=== PATIENT | male | born 1970 | race Caucasian/White ===

== ENCOUNTER 2017-02-28 11:04 | Inpatient (IN) | payer OTHER ==
[2017-02-28 11:13] VITALS: BMI 39.5
--- NOTE | 2017-02-28 11:32 | PDOC ---
History of Present Illness - General Chief Complaint: Pain Stated Complaint: LEFT SIDE ABDOMINAL PAIN Time Seen by Provider: 02/28/17 11:26 - History of Present Illness Initial Comments: 02/28/17 11:31 46 yo M with h/o HTN, and recent diagnosis of hypertensive cardiomyopathy who presents with L sided abdominal pain. Patient reports acute onset of Left sided migratory abdominal pain beginning this past Thursday (02/25/16). Pain described as intermittent, variable dull and sharp burning pain aggravated with movement and deep inhalation.Pain not aggravated with food. Also asx.with abdominal bloating, decreased appetite, and dark bright yellow/orange colored urination. Denies N/V, fevers/chills, BPR, diarrhea, constipation, flank pain , dysuria, hematuria, lightheadedness, weakness. Denies OTC symptom management. Reports h/ o cyst on spleen. Has h/o hepatosteatosis. Denies PUD, hernias, abdominal surgery. Denies NSAID use. Endorses occasional alcohol use Q 3 months. Denies tobacco use. Denies recent traveling, camping, hiking. Past History - Past Medical History Allergies/Adverse Reactions: Allergies Allergy/AdvReac Type Severity Reaction Status Date / Time No Known Allergies Allergy Verified 02/28/17 11:09 Home Medications: Ambulatory Orders Carvedilol 6.25 mg PO BID 02/28/17 Eplerenone [Inspra] 50 mg PO DAILY 02/28/17 Valsartan/Hydrochlorothiazide [Valsartan-Hctz 160-25 mg Tab] 1 each PO DAILY COPD: No HTN: Yes Hypercholesterolemia: Yes - Suicide/Smoking/Psychosocial Hx Smoking Status: No Smoking History: Never smoked Number of Cigarettes Smoked Daily: 0 Information on smoking cessation initiated: No Hx Alcohol Use: No Drug/Substance Use Hx: No Substance Use Type: None Review of Systems - Review of Systems Comments:: 02/28/17 11:31 GENERAL/CONSTITUTIONAL: No fever or chills. No weakness. HEAD, EYES, EARS, NOSE AND THROAT: No change in vision. No ear pain or discharge. No sore throat.- CARDIOVASCULAR: No chest pain or shortness of breath RESPIRATORY: No cough, wheezing, or hemoptysis. GASTROINTESTINAL:+ abdominal pain. No nausea, vomiting, diarrhea or constipation. GENITOURINARY: No dysuria, frequency, or change in urination. MUSCULOSKELETAL: No joint or muscle swelling or pain. No neck or back pain. SKIN: No rash NEUROLOGIC: No headache, vertigo, loss of consciousness, or change in strength/ sensation. ENDOCRINE: No increased thirst. No abnormal weight change HEMATOLOGIC/LYMPHATIC: No anemia, easy bleeding, or history of blood clots. ALLERGIC/IMMUNOLOGIC: No hives or skin allergy. *Physical Exam - Vital Signs Last Vital Signs Temp Pulse Resp BP Pulse Ox 99.0 F 81 18 145/90 100 02/28/17 11:10 02/28/17 11:10 02/28/17 11:10 02/28/17 11:10 02/28/17 11:10 - Physical Exam Comments: 02/28/17 11:31 GENERAL: Awake, alert, and fully oriented, in no acute distress HEAD: No signs of trauma, normocephalic, atraumatic EYES: PERRLA, EOMI, sclera anicteric, conjunctiva clear ENT: Hearing grossly normal, nares patent, oropharynx clear without exudates. Moist mucosa NECK: Normal ROM, no, JVD, or masses LUNGS: No distress, speaks full sentences, clear to auscultation bilaterally HEART: Regular rate and rhythm, normal S1 and S2, no murmurs, rubs or gallops, peripheral pulses normal and equal bilaterally. ABDOMEN: Soft, Slight left sided abdominal tednerness with palpation of right quadrant. non rigid, absent rebound ttp, normoactive bowel sounds. No guarding. No masses. Absent CVA ttp, or suprpapubic ttp. EXTREMITIES : Normal inspection, Normal range of motion, no edema. No clubbing or cyanosis. SKIN: Warm, Dry, normal turgor, no rashes or lesions noted. \ ED Treatment Course - LABORATORY CBC & Chemistry Diagram: 02/28/17 11:55 02/28/17 12:45 Medical Decision Making - Medical Decision Making 02/28/17 11:58 46 yo M with h/o HTN, and recent diagnosis of hypertensive cardiomyopathy who presents with onset of Left sided migratory abdominal pain beginning this past Thursday (02/25/16). Pain is intermittent, variable dull and sharp burning pain aggravated with movement and deep inhalation.Asx. w/ abdominal bloating, decreased appetite, and dark bright yellow/orange colored urination. Denies N/V , fevers/chills, BPR, diarrhea, constipation, flank pain , dysuria, hematuria, lightheadedness, weakness. Reports h/o splenic cyst and hepatosteatosis. Endorses occasional alcohol use Q 3 months. Physical exam notable for L sided abdominal tenderness when palpating right quadrant. Hemodynamically stable. Low suspicion for infectious etiology, diverticulitis, colitis, gastroenteritis, in absence of systemic complaints, or bowel changes. Will consider urinary pathology in setting of dark color urine. Potential neprholithiasis vs less likely cystitis/pyelonephritis. Also consider splenic infarction/cyst rupture. ED Course: CBC, CMP, Lipase UA 02/28/17 13:[address] AP W/CON 02/28/17 14:38 CMP, CBC: unremarkable UA: 2 + blood, negative leuk esterase, and nitrite. 02/28/17 16:27 CT AP: Acute splenic infarct. Heparin infusion. 02/28/17 17:52 Spoke to [id number] Bonner.Will admit patient to Med/Surg Obs. *DC/Admit/Observation/Transfer Diagnosis at time of Disposition: Splenic infarction - Discharge Dispostion Admit: Yes - Referrals Referrals: Latanya Gruber MD [Primary Care Provider] - - Patient Instructions - Post Discharge Activity
--- NOTE | 2017-02-28 11:38 | PDOC ---
Attending Attestation - Resident Resident Name: Dillon Crum - HPI HPI: 02/28/17 12:52 Pt presents to the ED complaining of L sided abdominal pain that has been intermittent for one week. Denies fever, nausea and vomiting. Denies cough. Denies bowel complaints. Reports that the bumps in the road on the way to the ED were causing him to have severe pain and sweat. - Physicial Exam PE: 02/28/17 12:54 Agree with resident exam. Abdomen is soft, non tender and non distended on my exam. - Medical Decision Making 02/28/17 12:56 Pt presents to the ED complaining of a one week history of intermittent L sided abdominal pain. Differential includes diverticulitis, less likely splenic lesion or infarct, nephrolithiasis. Will check labs and CT abdomen pelvis, reassess. Will likely discharge home if labs and CT are negative
[2017-02-28 12:46] LABS: BASO % 0.9 % (0-2.0); EOS % 3.3 % (0-4.5); HEMATOCRIT 48.4 % (35.4-49); HEMOGLOBIN 15.7 GM/dL (11.7-16.9); LYMPH % 27.9 % (8-40); MCH 28.9 pg (25.7-33.7); MCHC 32.5 g/dl (32.0-35.9); MEAN CELL VOLUME 88.7 fl (80-96); MEAN PLT VOLUME 9.6 fl (7.5-11.1); MONO % 9.5 % (3.8-10.2); NEUT % 58.4 % (42.8-82.8); PLATELET COUNT 207 K/MM3 (134-434); RBC 5.45 M/mm3 (4.00-5.60); RDW 14.1 % (11.9-15.9); WHITE BLOOD COUNT 10.6 K/mm3 (4.0-10.0)
[2017-02-28 13:11] LABS: URINE APPEARANCE CLEAR; URINE BILIRUBIN NEGATIVE (NEGATIVE); URINE BLOOD 2+ (NEGATIVE); URINE COLOR YELLOW; URINE GLUCOSE (UA) NEGATIVE (NEGATIVE); URINE KETONE NEGATIVE (NEGATIVE); URINE LEUK ESTERASE NEGATIVE (NEGATIVE); URINE NITRITE NEGATIVE (NEGATIVE); URINE UROBILINOGEN NEGATIVE mg/dL (0.2-1.0)
[2017-02-28 13:27] LABS: URINE PROTEIN 1+ (NEGATIVE)
[2017-02-28 13:28] LABS: EPI CELLS RARE /HPF (FEW); URINE HYALINE CAST 1 /lpf; URINE MUCUS RARE
[2017-02-28] MEDS ORDERED: SODIUM CHLORIDE 1,000 ML IV STA (13:28)
[2017-02-28 13:31] LABS: ALBUMIN 3.6 g/dl (3.4-5.0); ALK PHOS 116 U/L (45-117); ANION GAP 6 (8-16); BILIRUBIN,TOTAL 1.1 mg/dL (0.2-1.0); BLOOD UREA NITROGEN 15 mg/dL (7-18); CALCIUM 8.9 mg/dL (8.5-10.1); CHLORIDE 99 mmol/L (98-107); CO2 31 mmol/L (21-32); CREATININE 1.2 mg/dL (0.7-1.3); GLUCOSE,RANDOM 90 mg/dL (74-106); POTASSIUM 4.4 mmol/L (3.5-5.1); SGOT/AST 24 U/L (15-37); SGPT/ALT 49 U/L (12-78); SODIUM 136 mmol/L (136-145); TOT PROT 7.4 g/dl (6.4-8.2)
[2017-02-28] MEDS ORDERED: HEPARIN NA (PORCINE) 5,000 UNITS/ML 1ML VIAL ONE (18:03)
[2017-02-28] MEDS ORDERED: HEPARIN INFUSION - 25,000 UNITS/500 ML INFUS.BAG IVPB ONE (18:03)
[2017-02-28] MEDS: HEPARIN - 25,000 UNIT in SODIUM CHLORIDE 495 ML IV SCH (18:13)
[2017-02-28] MEDS: HEPARIN NA (PORCINE) 5,000 UNITS/ML 1ML VIAL IVPUSH PRN (18:13)
[2017-02-28 18:34] LABS: PROTHROMBIN TIME (PATIENT) 11.3 SEC (9.98-11.88)
[2017-02-28 19:50] LABS: URIC ACID 8.7 mg/dL (2.6-7.2)
--- NOTE | 2017-02-28 21:36 | HP ---
CHIEF COMPLAINT: Left sided abdominal pain PCP: Rock [employer]imb[employer] Instructor: Dr. Stahl ([facility]) HISTORY OF PRESENT ILLNESS: This is a 46 y/o male recently diagnosed Hypertensive Cardiomyopathy. Who presents to the ED sent in from urgent care with L- sided abdominal pain x 4 days. Patient reports having intermittent, dull pain then sharp, burning, increased with deep inspiration. Patient denies fall or trauma. Patient denies fever, chills, cough, SOB, CP, N/V/D, constipation, dysuria. 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[employer]) Family History: Grandfather- DVT Allergies No Known Allergies Allergy (Verified 02/28/17 11:09) HOME MEDICATIONS: Home Medications Medication Instructions Recorded Carvedilol 6.25 mg PO BID 02/28/17 Eplerenone [Inspra] 50 mg PO DAILY 02/28/17 Valsartan/Hydrochlorothiazide 1 each PO DAILY 02/28/17 [Valsartan-Hctz 160-25 mg Tab] REVIEW OF SYSTEMS CONSTITUTIONAL: Absent: fever, chills, diaphoresis, generalized weakness, malaise, loss of appetite, weight change HEENT: Absent: rhinorrhea, nasal congestion, throat pain, throat swelling, difficulty swallowing, mouth swelling, ear pain, eye pain, visual changes CARDIOVASCULAR: Absent: chest pain, syncope, palpitations, irregular heart rate, lightheadedness , peripheral edema RESPIRATORY: pain on inspiration Absent: cough, shortness of breath, dyspnea with exertion, orthopnea, wheezing, stridor, hemoptysis GASTROINTESTINAL: abdominal pain Absent: abdominal distension, nausea, vomiting, diarrhea, constipation, melena, hematochezia GENITOURINARY: Absent: dysuria, frequency, urgency, hesitancy, hematuria, flank pain, genital pain MUSCULOSKELETAL: Absent: myalgia, arthralgia, joint swelling, back pain, neck pain SKIN: Absent: rash, itching, pallor HEMATOLOGIC/IMMUNOLOGIC: Absent: easy bleeding, easy bruising, lymphadenopathy, frequent infections ENDOCRINE: Absent: unexplained weight gain, unexplained weight loss, heat intolerance, cold intolerance NEUROLOGIC: Absent: headache, focal weakness or paresthesias, dizziness, unsteady gait, seizure, mental status changes, bladder or bowel incontinence PSYCHIATRIC: Absent: anxiety, depression, suicidal or homicidal ideation, hallucinations. PHYSICAL EXAMINATION Vital Signs - 24 hr 02/28/17 02/28/17 02/28/17 11:10 16:14 20:20 Temperature 99.0 F 97.8 F Pulse Rate 81 Pulse Rate [ 72 85 Radial] Respiratory 18 20 18 Rate Blood Pressure 145/90 Blood Pressure 133/86 126/75 [Left Arm] O2 Sat by Pulse 100 96 97 Oximetry (%) GENERAL: Awake, alert, and fully oriented, in no acute distress. HEAD: Normal with no signs of trauma. EYES: Pupils equal, round and reactive to light, extraocular movements intact, sclera anicteric, conjunctiva clear. No lid lag. EARS, NOSE, THROAT: Ears normal, nares patent, oropharynx clear without exudates. Moist mucous membranes. NECK: Normal range of motion, supple without lymphadenopathy, JVD, or masses. LUNGS: Breath sounds equal, clear to auscultation bilaterally. No wheezes, and no crackles. No accessory muscle use. HEART: Regular rate and rhythm, normal S1 and S2 without murmur, rub or gallop. ABDOMEN: Soft, nontender, not distended, normoactive bowel sounds, no guarding, no rebound, no masses. No hepatomegaly or splenomegaly. MUSCULOSKELETAL: Normal range of motion at all joints. No bony deformities or tenderness. No CVA tenderness. UPPER EXTREMITIES: 2+ pulses, warm, well-perfused. No cyanosis. No clubbing. No peripheral edema. LOWER EXTREMITIES: 2+ pulses, warm, well-perfused. No calf tenderness. Trace B/ L peripheral edema. NEUROLOGICAL: Cranial nerves II-XII intact. Normal speech. Gait not observed. PSYCHIATRIC: Cooperative. Good eye contact. Appropriate mood and affect. SKIN: Warm, dry, normal turgor, no rashes or lesions noted, normal capillary refill. Laboratory Results - last 24 hr 02/28/17 02/28/17 02/28/17 11:55 12:45 12:45 WBC 10.6 H RBC 5.45 Hgb 15.7 Hct 48.4 MCV 88.7 MCH 28.9 MCHC 32.5 RDW 14.1 Plt Count 207 D MPV 9.6 D Neutrophils % 58.4 Lymphocytes % 27.9 D Monocytes % 9.5 Eosinophils % 3.3 Basophils % 0.9 ESR PT with INR INR PTT (Actin FS) Sodium 136 Potassium 4.4 Chloride 99 Carbon Dioxide 31 Anion Gap 6 L BUN 15 Creatinine 1.2 Creat Clearance w eGFR > 60 Random Glucose 90 Uric Acid Calcium 8.9 Total Bilirubin 1.1 H AST 24 ALT 49 Alkaline Phosphatase 116 LD Total Creatine Kinase Total Protein 7.4 Albumin 3.6 Lipase 195 Urine Color Urine Appearance Urine pH Ur Specific [place] Urine Protein Urine Glucose (UA) Urine Ketones Urine Blood Urine Nitrite Urine Bilirubin Urine Urobilinogen Ur Leukocyte Esterase Urine WBC (Auto) Urine RBC (Auto) Ur Epithelial Cells Hyaline Casts Urine Mucus 02/28/17 02/28/17 02/28/17 13:00 18:06 18:06 WBC RBC Hgb Hct MCV MCH MCHC RDW Plt Count MPV Neutrophils % Lymphocytes % Monocytes % Eosinophils % Basophils % ESR PT with INR 11.30 INR 1.00 PTT (Actin FS) 26.8 L Sodium Potassium Chloride Carbon Dioxide Anion Gap BUN Creatinine Creat Clearance w eGFR Random Glucose Uric Acid Calcium Total Bilirubin AST ALT Alkaline Phosphatase LD Total Creatine Kinase Total Protein Albumin Lipase Urine Color Yellow Urine Appearance Clear Urine pH 6.0 Ur Specific [place] 1.014 Urine Protein 1+ H Urine Glucose (UA) Negative Urine Ketones Negative Urine Blood 2+ H Urine Nitrite Negative Urine Bilirubin Negative Urine Urobilinogen Negative Ur Leukocyte Esterase Negative Urine WBC (Auto) 1 Urine RBC (Auto) 13 Ur Epithelial Cells Rare Hyaline Casts 1 Urine Mucus Rare 02/28/17 02/28/17 18:54 18:54 WBC RBC Hgb Hct MCV MCH MCHC RDW Plt Count MPV Neutrophils % Lymphocytes % Monocytes % Eosinophils % Basophils % ESR 10 PT with INR INR PTT (Actin FS) Sodium Potassium Chloride Carbon Dioxide Anion Gap BUN Creatinine Creat Clearance w eGFR Random Glucose Uric Acid 8.7 H Calcium Total Bilirubin AST ALT Alkaline Phosphatase LD Total 245 H Creatine Kinase 95 Total Protein Albumin Lipase Urine Color Urine Appearance Urine pH Ur Specific [place] Urine Protein Urine Glucose (UA) Urine Ketones Urine Blood Urine Nitrite Urine Bilirubin Urine Urobilinogen Ur Leukocyte Esterase Urine WBC (Auto) Urine RBC (Auto) Ur Epithelial Cells Hyaline Casts Urine Mucus ASSESSMENT/PLAN: This is a 46 y/o male with a medical history of Hypertensive Cardiomyopathy. Placed on Tele Observation for Splenic Infarct Plan: 1. Splenic Infarct - Likely due to hypercoagulable state vs embolic disease - Continue cardiac monitoring concern for rupture - LD-245, WBC 10.6 - Started on Heparin in ED, will continue - Monitor PTT - Appreciate Hematology Consult - Appreciate Cardiology Consult - EKG-pending - CBC, BMP in am - Will send flow cytometry; cytogenectics; peripheral blood PCR for BCR; ABL, FISH, Alvin II Mutation r/o CML per heme - Morphine Sulfate prn - Gentle IVF 2. Hypertensive Cardiomyopathy - Continue home meds 3. FEN - NS@75ml/hr - Replete lytes prn - NPO 4. DVT Prophylaxis - OOB - On Heparin Drip Code Status: Full Code Dispo: Tele Observation Visit type - Emergency Visit Emergency Visit: Yes ED Registration Date: 02/28/17 Care time: The patient presented to the Emergency Department on the above date and was hospitalized for further evaluation of their emergent condition. - New Patient This patient is new to me today: Yes Date on this admission: 02/28/17 - Critical Care Critical Care patient: No
[2017-02-28] MEDS ORDERED: SODIUM CHLORIDE 1,000 ML IV SCH (22:15)
[2017-02-28] MEDS ORDERED: morphine CARPU-JECT 10 MG/1 ML DISP.SYRIN IVPUSH PRN (23:00)
--- NOTE | 2017-02-28 23:51 | CONSULT ---
Consult - text type - Consultation Consultation Note: Patient is a 46 y/o male recently diagnosed Hypertensive Cardiomyopathy. Who presents to the ED sent in from urgent care with L- sided abdominal pain x 4 days. Patient reports having intermittent, dull pain then sharp, burning, increased with deep inspiration. Patient denies fall or trauma. Patient denies fever, chills, cough, SOB, CP, N/V/D, constipation, dysuria. 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[employer]) Family History:no bleedingproblems no cancer grandfather had DVT Allergies No Known Allergies Allergy (Verified 02/28/17 11:09) HOME MEDICATIONS: Home Medications Medication Instructions Recorded Carvedilol 6.25 mg PO BID 02/28/17 Eplerenone [Inspra] 50 mg PO DAILY 02/28/17 Valsartan/Hydrochlorothiazide 1 each PO DAILY 02/28/17 [Valsartan-Hctz 160-25 mg Tab] REVIEW OF SYSTEMS CONSTITUTIONAL: Absent: fever, chills, diaphoresis, generalized weakness, malaise, loss of appetite, weight change HEENT: Absent: rhinorrhea, nasal congestion, throat pain, throat swelling, difficulty swallowing, mouth swelling, ear pain, eye pain, visual changes CARDIOVASCULAR: Absent: chest pain, syncope, palpitations, irregular heart rate, lightheadedness , peripheral edema RESPIRATORY: pain on inspiration Absent: cough, shortness of breath, dyspnea with exertion, orthopnea, wheezing, stridor, hemoptysis GASTROINTESTINAL: abdominal pain Absent: abdominal distension, nausea, vomiting, diarrhea, constipation, melena, hematochezia GENITOURINARY: Absent: dysuria, frequency, urgency, hesitancy, hematuria, flank pain, genital pain MUSCULOSKELETAL: Absent: myalgia, arthralgia, joint swelling, back pain, neck pain SKIN: Absent: rash, itching, pallor HEMATOLOGIC/IMMUNOLOGIC: Absent: easy bleeding, easy bruising, lymphadenopathy, frequent infections ENDOCRINE: Absent: unexplained weight gain, unexplained weight loss, heat intolerance, cold intolerance NEUROLOGIC: Absent: headache, focal weakness or paresthesias, dizziness, unsteady gait, seizure, mental status changes, bladder or bowel incontinence PSYCHIATRIC: Absent: anxiety, depression, suicidal or homicidal ideation, hallucinations. PHYSICAL EXAMINATION Vital Signs - 24 hr 02/28/17 02/28/17 02/28/17 11:10 16:14 20:20 Temperature 99.0 F 97.8 F Pulse Rate 81 Pulse Rate [ 72 85 Radial] Respiratory 18 20 18 Rate Blood Pressure 145/90 Blood Pressure 133/86 126/75 [Left Arm] O2 Sat by Pulse 100 96 97 Oximetry (%) GENERAL: Awake, alert, and fully oriented, in no acute distress. HEAD: Normal with no signs of trauma. EYES: Pupils equal, round and reactive to light, extraocular movements intact, sclera anicteric, conjunctiva clear. No lid lag. EARS, NOSE, THROAT: Ears normal, nares patent, oropharynx clear without exudates. Moist mucous membranes. NECK: Normal range of motion, supple without lymphadenopathy, JVD, or masses. LUNGS: Breath sounds equal, clear to auscultation bilaterally. No wheezes, and no crackles. No accessory muscle use. HEART: Regular rate and rhythm, normal S1 and S2 without murmur, rub or gallop. ABDOMEN: Soft, nontender, not distended, normoactive bowel sounds, no guarding, no rebound, no masses. No hepatomegaly or splenomegaly. MUSCULOSKELETAL: Normal range of motion at all joints. No bony deformities or tenderness. No CVA tenderness. UPPER EXTREMITIES: 2+ pulses, warm, well-perfused. No cyanosis. No clubbing. No peripheral edema. LOWER EXTREMITIES: 2+ pulses, warm, well-perfused. No calf tenderness. Trace B/ L peripheral edema. NEUROLOGICAL: Cranial nerves II-XII intact. Normal speech. Gait not observed. PSYCHIATRIC: Cooperative. Good eye contact. Appropriate mood and affect. SKIN: Warm, dry, normal turgor, no rashes or lesions noted, normal capillary refill. Laboratory Results - last 24 hr 02/28/17 02/28/17 02/28/17 11:55 12:45 12:45 WBC 10.6 H RBC 5.45 Hgb 15.7 Hct 48.4 MCV 88.7 MCH 28.9 MCHC 32.5 RDW 14.1 Plt Count 207 D MPV 9.6 D Neutrophils % 58.4 Lymphocytes % 27.9 D Monocytes % 9.5 Eosinophils % 3.3 Basophils % 0.9 ESR PT with INR INR PTT (Actin FS) Sodium 136 Potassium 4.4 Chloride 99 Carbon Dioxide 31 Anion Gap 6 L BUN 15 Creatinine 1.2 Creat Clearance w eGFR > 60 Random Glucose 90 Uric Acid Calcium 8.9 Total Bilirubin 1.1 H AST 24 ALT 49 Alkaline Phosphatase 116 LD Total Creatine Kinase Total Protein 7.4 Albumin 3.6 Lipase 195 Urine Color Urine Appearance Urine pH Ur Specific [place] Urine Protein Urine Glucose (UA) Urine Ketones Urine Blood Urine Nitrite Urine Bilirubin Urine Urobilinogen Ur Leukocyte Esterase Urine WBC (Auto) Urine RBC (Auto) Ur Epithelial Cells Hyaline Casts Urine Mucus 02/28/17 02/28/17 02/28/17 13:00 18:06 18:06 WBC RBC Hgb Hct MCV MCH MCHC RDW Plt Count MPV Neutrophils % Lymphocytes % Monocytes % Eosinophils % Basophils % ESR PT with INR 11.30 INR 1.00 PTT (Actin FS) 26.8 L Sodium Potassium Chloride Carbon Dioxide Anion Gap BUN Creatinine Creat Clearance w eGFR Random Glucose Uric Acid Calcium Total Bilirubin AST ALT Alkaline Phosphatase LD Total Creatine Kinase Total Protein Albumin Lipase Urine Color Yellow Urine Appearance Clear Urine pH 6.0 Ur Specific [place] 1.014 Urine Protein 1+ H Urine Glucose (UA) Negative Urine Ketones Negative Urine Blood 2+ H Urine Nitrite Negative Urine Bilirubin Negative Urine Urobilinogen Negative Ur Leukocyte Esterase Negative Urine WBC (Auto) 1 Urine RBC (Auto) 13 Ur Epithelial Cells Rare Hyaline Casts 1 Urine Mucus Rare 02/28/17 02/28/17 18:54 18:54 WBC RBC Hgb Hct MCV MCH MCHC RDW Plt Count MPV Neutrophils % Lymphocytes % Monocytes % Eosinophils % Basophils % ESR 10 PT with INR INR PTT (Actin FS) Sodium Potassium Chloride Carbon Dioxide Anion Gap BUN Creatinine Creat Clearance w eGFR Random Glucose Uric Acid 8.7 H Calcium Total Bilirubin AST ALT Alkaline Phosphatase LD Total 245 H Creatine Kinase 95 Total Protein Albumin Lipase Urine Color Urine Appearance Urine pH Ur Specific [place] Urine Protein Urine Glucose (UA) Urine Ketones Urine Blood Urine Nitrite Urine Bilirubin Urine Urobilinogen Ur Leukocyte Esterase Urine WBC (Auto) Urine RBC (Auto) Ur Epithelial Cells Hyaline Casts Urine Mucus ASSESSMENT/PLAN: This is a 46 y/o male with a medical history of Hypertensive Cardiomyopathy. Placed on Tele Observation for Splenic Infarct SPLENIC INFARCT .Patent splenic vein/artery on CT scan. no other pathology on CT scan Supportive care with pain meds, hydration monitor for complications --infection/bleeding/rupture will need w/u for etiologies--hypercoagulable state, myeloproliferative disorders, embolism will request cardiology consult to r/o embolization/afib will check bcr;abl?JAK2/flow/cytogenetics FISH--given elevated uric acid and LDH ---will need to r/o myeloproliferative disorder --? CML will need thrombophilia w/u outpatietn also with microscopic hematuria -- needs nephrology w/u will need to closely follow with us as outpatient once discharged
[2017-03-01] MEDS: CARVEDILOL 6.25 MG TABLET (FP) PO SCH ×3 (03:12→22:11)
[2017-03-01] MEDS ORDERED: HEPARIN NA (PORCINE) 5,000 UNITS/ML 1ML VIAL ONE (04:38)
[2017-03-01] MEDS: HEPARIN NA (PORCINE) 5,000 UNITS/ML 1ML VIAL IVPUSH PRN (04:45)
[2017-03-01 09:13] LABS: BASO % 1.2 % (0-2.0); EOS % 4.6 % (0-4.5); HEMATOCRIT 45.9 % (35.4-49); HEMOGLOBIN 14.9 GM/dL (11.7-16.9); LYMPH % 31.2 % (8-40); MCH 29.1 pg (25.7-33.7); MCHC 32.5 g/dl (32.0-35.9); MEAN CELL VOLUME 89.6 fl (80-96); MEAN PLT VOLUME 9.2 fl (7.5-11.1); MONO % 8.7 % (3.8-10.2); NEUT % 54.3 % (42.8-82.8); RBC 5.12 M/mm3 (4.00-5.60); WHITE BLOOD COUNT 8.7 K/mm3 (4.0-10.0)
[2017-03-01 09:36] LABS: ANION GAP 6 (8-16); CALCIUM 9.1 mg/dL (8.5-10.1); CHLORIDE 98 mmol/L (98-107); CO2 33 mmol/L (21-32); CREATININE 1.1 mg/dL (0.7-1.3); GLUCOSE,RANDOM 98 mg/dL (74-106); POTASSIUM 4.3 mmol/L (3.5-5.1); SODIUM 137 mmol/L (136-145)
[2017-03-01 09:38] LABS: BLOOD UREA NITROGEN 14 mg/dL (7-18)
[2017-03-01] MEDS ORDERED: PATIENT'S OWN MEDICATION (NON-FORMULARY) (Valsartan/Hydrochlorothiazide [Valsartan-Hctz 16 PO SCH (10:00)
[2017-03-01] MEDS: HYDROCHLOROTHIAZIDE 25 MG TABLET (FP) PO SCH (10:39)
[2017-03-01] MEDS: VALSARTAN 160 MG TABLET (UD) PO SCH (10:39)
--- NOTE | 2017-03-01 12:51 | EKG ---
Test Reason : Blood Pressure : / mmHG Vent. Rate : 081 BPM Atrial Rate : 081 BPM P-R Int : 180 ms QRS Dur : 116 ms QT Int : 378 ms P-R-T Axes : 057 -37 118 degrees QTc Int : 439 ms NORMAL SINUS RHYTHM LEFT ATRIAL ENLARGEMENT LEFT AXIS DEVIATION LEFT VENTRICULAR HYPERTROPHY WITH QRS WIDENING AND REPOLARIZATION ABNORMALITY ABNORMAL ECG NO PREVIOUS ECGS AVAILABLE Confirmed by David Bravo ([id number]) on 03/01/2017 12:50:51 PM Referred By: Confirmed By:David Bravo
--- NOTE | 2017-03-01 15:49 | CON.CARD ---
Consult Consult Specialty:: Cardiology Referred by:: Hospitalist Medicine Reason for Consultation:: Splenic infarction - History of Present Illness Chief Complaint: LUQ pain History of Present Illness: Patient is a 46 y/o male recently diagnosed Hypertensive Cardiomyopathy presented to the ED sent in from urgent care with L- sided abdominal pain x 4 days. Patient reports having intermittent, dull pain then sharp, burning, increased with deep inspiration. Patient denies fall or trauma. Patient denies fever, chills, cough, SOB, CP, near or true syncope, palpitations, orthopnea, PND or LE edema. Reproductive Endocrinologist: Dr. Stahl ([facility]) - History Source History Provided By: Patient Limitations to Obtaining History: No Limitations - Past Medical History Cardio/Vascular: Yes: CHF, HTN - Alcohol/Substance Use Hx Alcohol Use: No - Smoking History Smoking history: Never smoked Aproximately how many cigarettes per day: 0 Home Medications - Allergies Allergies/Adverse Reactions: Allergies Allergy/AdvReac Type Severity Reaction Status Date / Time No Known Allergies Allergy Verified 02/28/17 11:09 - Home Medications Home Medications: Ambulatory Orders Carvedilol 6.25 mg PO BID 02/28/17 Eplerenone [Inspra] 50 mg PO DAILY 02/28/17 Valsartan/Hydrochlorothiazide [Valsartan-Hctz 160-25 mg Tab] 1 each PO DAILY Review of Systems - Review of Systems Gastrointestinal: reports: Abdominal Pain (LUQ) Vital Signs: Vital Signs Temperature 98.3 F 03/01/17 10:37 Pulse Rate 72 03/01/17 10:37 Respiratory Rate 16 03/01/17 12:33 Blood Pressure 129/92 03/01/17 10:37 O2 Sat by Pulse Oximetry (%) 100 03/01/17 12:33 Constitutional: Yes: No Distress, Calm Neck: Yes: Supple Respiratory: Yes: Regular, CTA Bilaterally Gastrointestinal: Yes: Soft, Hypoactive Bowel Sounds, Tenderness (LUQ) Cardiovascular: Yes: Regular Rate and Rhythm JVD: No Carotid Bruit: No Heart Sounds: Yes: S1, S2 Murmur: Yes: Systolic Murmur, Grade 1 Edema: No - Other Data Labs, Other Data: CBC, BMP 03/01/17 08:44 03/01/17 08:44 INR, PTT INR 1.00 (0.82-1.09) 02/28/17 18:06 NSR @ 81 LVH, LAD, LAE Ejection Fraction %: LVEF < 40 % Imaging - Results Cat Scan: Report Reviewed (Acute splenic infarct) Problem List - Problems (1) Hypertensive cardiomyopathy Code(s): I11.9 - HYPERTENSIVE HEART DISEASE WITHOUT HEART FAILURE; I43 - CARDIOMYOPATHY IN DISEASES CLASSIFIED ELSEWHERE Qualifiers: Heart failure presence: without heart failure Qualified Code(s): I11.9 - Hypertensive heart disease without heart failure; I43 - Cardiomyopathy in diseases classified elsewhere; I43 - Cardiomyopathy in diseases classified elsewhere; I43 - Cardiomyopathy in diseases classified elsewhere; I43 - Cardiomyopathy in diseases classified elsewhere (2) Splenic infarction Code(s): D73.5 - INFARCTION OF SPLEEN Assessment/Plan 1. Splenic infarct r/o PAF, hypercoagulable states 2. Hypertensive cardiomyopathy, euvolemic P:1. Echo to assess ventricular and valve fxn 2. environmental monitoring specialist to eval PAF, may benefit from prolonged arrhythmia monitor if unrevealing 3. Continue carvedilol 6.25 bid, Inspra 50 qd, Diovan HCT 160/25 qd 4. Heparin gtt->coumadin per INR, analgesia as needed 5. F/u flow cytometry; cytogenectics; peripheral blood PCR for BCR; ABL, FISH, Alvin II Mutation r/o CML per heme 6. Thank you for consultative opportunity
--- NOTE | 2017-03-01 16:54 | PN ---
Physical Exam: SUBJECTIVE: Patient seen and examined. He states he has a high pain tolerance, his LLQ is a localized pressure and he has some SOB. OBJECTIVE: Vital Signs Period Temp Pulse Resp BP Sys/Zambrano Pulse Ox Last 24 Hr 97.2 F-98.3 F 62-85 16-18 116-129/68-92 97-100 PE Neuro: alert, awake, cn 2-12intact HEEN: dry MM Pulm: CTAB CV: s1 s2 rrr Abd: LLQ pressure abd soft Ext: trace le edema Laboratory Results - last 24 hr 03/01/17 03/01/17 03/01/17 08:44 08:44 08:44 WBC 8.7 Corrected WBC (auto) RBC 5.12 Hgb 14.9 Hct 45.9 MCV 89.6 MCH 29.1 MCHC 32.5 RDW 14.0 Plt Count MPV 9.2 Neutrophils % 54.3 Lymphocytes % 31.2 Monocytes % 8.7 Eosinophils % 4.6 H Basophils % 1.2 Nucleated RBC % Platelet Estimate Platelet Comment Mod plt clumping ESR PT with INR INR PTT (Actin FS) 54.4 H D Sodium 137 Potassium 4.3 Chloride 98 Carbon Dioxide 33 H Anion Gap 6 L BUN 14 Creatinine 1.1 Random Glucose 98 Uric Acid Calcium 9.1 LD Total Creatine Kinase C-Reactive Protein 02/28/17 02/28/17 02/28/17 12:45 18:54 18:54 ESR 10 Uric Acid 8.7 H LD Total 245 H C-Reactive Protein Lipase 195 02/28/17 18:54 ESR Uric Acid LD Total C-Reactive Protein 1.6 H Lipase Active Medications Generic Name Dose Route Start Last Admin Trade Name Freq PRN Reason Stop Dose Admin Carvedilol 6.25 mg 03/01/17 00:30 03/01/17 10:38 Coreg - PO 6.25 mg BID LUI Administration Eplerenone 50 mg 03/02/17 10:00 Eplerenone PO DAILY LUI Heparin Sodium (Porcine) 1,000 unit 02/28/17 17:51 Heparin - IVPUSH PRN PRN Heparin Heparin Sodium (Porcine) 5,000 unit 02/28/17 17:51 03/01/17 04:45 Heparin - IVPUSH 5,000 unit PRN PRN Administration Heparin Hydrochlorothiazide 25 mg 03/01/17 10:00 03/01/17 10:39 Hctz - PO 25 mg DAILY LUI Administration Heparin Sodium (Porcine) 25, 500 mls @ 20 mls/hr 02/28/17 18:00 03/01/17 04: 45 000 unit/ Sodium Chloride IV 1,150 unit/hr TITR LUI 23 mls/hr Protocol Titration 1,000 UNIT/HR Sodium Chloride 1,000 mls @ 60 mls/hr 02/28/17 22:15 02/28/17 22:15 Normal Saline - IV 60 mls/hr ASDIR LUI Administration Morphine Sulfate 2 mg 02/28/17 23:00 Morphine Injection - IVPUSH Q6H PRN PAIN LEVEL 6-10 Valsartan 160 mg 03/01/17 10:00 03/01/17 10:39 Diovan - PO 160 mg DAILY LUI Administration Warfarin Sodium 5 mg 03/01/17 18:00 Coumadin - PO DAILY@1800 LUI Assessment: 46 year old male with hypertensive cardiomyopathy admitted with LLQ pain Plan: 1. Acute splenic infarct - Unclear etiology - voltage inspector r/o PAF - Maintain heparin gtt - Coumadin bridge, start 5mg tonight - ECHO - Given, elevated uric acid/LDH will need to rule out CML/myleoproliferative disorder, will contact pathology tomorrow for cytogentics, flow cytometry, FISH , JAK2, BCR ABL - Thrombophilia w/u as outpt 2. HTN - Controlled - Continue coreg 6.25mg - Diovan 160mg daily - HCTZ 25mg - Eplerenon 50mg BID 3. Systolic CHF - Not in exacerbation - Meds above 4. Microscopic hematuria - Urology consult Visit type - Emergency Visit Emergency Visit: Yes ED Registration Date: 03/01/17 Care time: The patient presented to the Emergency Department on the above date and was hospitalized for further evaluation of their emergent condition. - New Patient This patient is new to me today: Yes Date on this admission: 03/01/17 - Critical Care Critical Care patient: No
[2017-03-01] MEDS: WARFARIN NA 5 MG TABLET (UD) PO SCH (18:09)
[2017-03-01] MEDS: HEPARIN - 25,000 UNIT in SODIUM CHLORIDE 495 ML IV SCH (18:09)
--- NOTE | 2017-03-01 19:14 | PN ---
Progress Note (short form) - Note Progress Note: PAtient seen and examined feels better Last Vital Signs Temp Pulse Resp BP Pulse Ox 97.1 F L 73 16 137/81 100 03/01/17 18:00 03/01/17 18:00 03/01/17 18:00 03/01/17 18:00 03/01/17 18:00 Cor: RSR, No murmurs, No gallops Lungs: Clear to P&A Abd: Soft, Normal bowel sounds, No organomegaly Ext:No significant edema Skin: No rashes, Integument intact Abnormal Lab Results 02/28/17 02/28/17 03/01/17 18:54 18:54 03:08 Eosinophils % PTT (Actin FS) 22.7 L Carbon Dioxide Anion Gap Uric Acid 8.7 H LD Total 245 H C-Reactive Protein 1.6 H 03/01/17 03/01/17 03/01/17 08:44 08:44 08:44 Eosinophils % 4.6 H PTT (Actin FS) 54.4 H D Carbon Dioxide 33 H Anion Gap 6 L Uric Acid LD Total C-Reactive Protein Active Medications Generic Name Dose Route Start Last Admin Trade Name Freq PRN Reason Stop Dose Admin Carvedilol 6.25 mg 03/01/17 00:30 03/01/17 10:38 Coreg - PO 6.25 mg BID LUI Administration Eplerenone 50 mg 03/02/17 10:00 Eplerenone PO DAILY LUI Heparin Sodium (Porcine) 1,000 unit 02/28/17 17:51 Heparin - IVPUSH PRN PRN Heparin Heparin Sodium (Porcine) 5,000 unit 02/28/17 17:51 03/01/17 04:45 Heparin - IVPUSH 5,000 unit PRN PRN Administration Heparin Hydrochlorothiazide 25 mg 03/01/17 10:00 03/01/17 10:39 Hctz - PO 25 mg DAILY LUI Administration Heparin Sodium (Porcine) 25, 500 mls @ 20 mls/hr 02/28/17 18:00 03/01/17 18: 09 000 unit/ Sodium Chloride IV 1,150 unit/hr TITR LUI 23 mls/hr Protocol Administration 1,000 UNIT/HR Sodium Chloride 1,000 mls @ 60 mls/hr 02/28/17 22:15 02/28/17 22:15 Normal Saline - IV 60 mls/hr ASDIR LUI Administration Influenza Virus Vaccine Quadrival 60 mcg 03/01/17 18:00 Flulaval Quad [id number] IM 03/01/17 18:01 .ONCE ONE Morphine Sulfate 2 mg 02/28/17 23:00 Morphine Injection - IVPUSH Q6H PRN PAIN LEVEL 6-10 Pneumococcal 13-Valent Conj Vacc 0.5 ml 03/01/17 18:00 Prevnar 13 Syringe - IM 03/01/17 18:01 .ONCE ONE Valsartan 160 mg 03/01/17 10:00 03/01/17 10:39 Diovan - PO 160 mg DAILY LUI Administration Warfarin Sodium 5 mg 03/01/17 18:00 03/01/17 18:09 Coumadin - PO 5 mg DAILY@1800 LUI Administration A/P This is a 46 y/o male with a medical history of Hypertensive Cardiomyopathy. Placed on Tele Observation for Splenic Infarct SPLENIC INFARCT .Patent splenic vein/artery on CT scan. no other pathology on CT scan Supportive care with pain meds, hydration monitor for complications --infection/bleeding/rupture cardiology consult appreciated--r/o structural heart disease/afib--heparin being bridgef to coumadin will need w/u for etiologies--hypercoagulable state, myeloproliferative disorders, embolism will check bcr;abl?JAK2/flow/cytogenetics FISH--given elevated uric acid and LDH ---will need to r/o myeloproliferative disorder --? CML will need thrombophilia w/u outpatietn also with microscopic hematuria -- needs nephrology w/u will need to closely follow with us as outpatient once discharged
[2017-03-01] MEDS: HEPARIN SOD,PORK IN 0.45% NACL 25,000 UNITS/500 ML INFUS.BAG IVPB SCH (20:12)
--- NOTE | 2017-03-01 20:34 | PN ---
Progress Note, Physician Chief Complaint: Splenic infarct History of Present Illness: NAD self ambulatory on heparin drip seen by hematology and cardiology started on warfarin - Current Medication List Current Medications: Active Medications Acetaminophen (Tylenol -) 650 mg PO Q6H PRN PRN Reason: PAIN Carvedilol (Coreg -) 6.25 mg PO BID [facility] Last Admin: 03/01/17 10:38 Dose: 6.25 mg Eplerenone (Eplerenone) 50 mg PO DAILY [facility] Heparin Sodium (Porcine) (Heparin -) 1,000 unit IVPUSH PRN PRN PRN Reason: Heparin Heparin Sodium (Porcine) (Heparin -) 5,000 unit IVPUSH PRN PRN PRN Reason: Heparin Last Admin: 03/01/17 04:45 Dose: 5,000 unit Hydrochlorothiazide (Hctz -) 25 mg PO DAILY [facility] Last Admin: 03/01/17 10:39 Dose: 25 mg Sodium Chloride (Normal Saline -) 1,000 mls @ 60 mls/hr IV ASDIR [facility] Last Admin: 02/28/17 22:15 Dose: 60 mls/hr HEPARIN SOD,PORK IN 0.45% NACL (Heparin-1/2ns 25,000 Units/500) 25,000 units in 500 mls @ 20 mls/hr IVPB TITR LUI; 1,000 UNITS/HR PRN Reason: Protocol Last Admin: 03/01/17 20:12 Dose: 1,150 units/hr, 23 mls/hr Influenza Virus Vaccine Quadrival (Flulaval Quad [id number]) 60 mcg IM .ONCE ONE Stop: 03/01/17 18:01 Morphine Sulfate (Morphine Injection -) 2 mg IVPUSH Q6H PRN PRN Reason: PAIN LEVEL 6-10 Pneumococcal 13-Valent Conj Vacc (Prevnar 13 Syringe -) 0.5 ml IM .ONCE ONE Stop: 03/01/17 18:01 Valsartan (Diovan -) 160 mg PO DAILY [facility] Last Admin: 03/01/17 10:39 Dose: 160 mg Warfarin Sodium (Coumadin -) 5 mg PO DAILY@1800 [facility] Last Admin: 03/01/17 18:09 Dose: 5 mg - Objective Vital Signs: Vital Signs Temperature 97.1 F L 03/01/17 18:00 Pulse Rate 73 03/01/17 18:00 Respiratory Rate 16 03/01/17 18:00 Blood Pressure 137/81 03/01/17 18:00 O2 Sat by Pulse Oximetry (%) 100 03/01/17 18:00 Constitutional: Yes: Well Nourished, No Distress, Calm Cardiovascular: Yes: Regular Rate and Rhythm Respiratory: Yes: Regular Gastrointestinal: Yes: Normal Bowel Sounds, Soft Musculoskeletal: Yes: WNL Extremities: Yes: WNL Edema: No Peripheral Pulses WNL: Yes Neurological: Yes: Alert, Oriented Psychiatric: Yes: Alert, Oriented Labs: CBC, BMP 03/01/17 08:44 03/01/17 08:44 INR, PTT INR 1.00 (0.82-1.09) 02/28/17 18:06 Problem List - Problems (1) Hypertensive cardiomyopathy Assessment/Plan: -tele monitoring -seen by cardiology -echo Code(s): I11.9 - HYPERTENSIVE HEART DISEASE WITHOUT HEART FAILURE; I43 - CARDIOMYOPATHY IN DISEASES CLASSIFIED ELSEWHERE Qualifiers: Heart failure presence: without heart failure Qualified Code(s): I11.9 - Hypertensive heart disease without heart failure; I43 - Cardiomyopathy in diseases classified elsewhere; I43 - Cardiomyopathy in diseases classified elsewhere; I43 - Cardiomyopathy in diseases classified elsewhere; I43 - Cardiomyopathy in diseases classified elsewhere (2) Splenic infarction Assessment/Plan: -AC -hematology on board Code(s): D73.5 - INFARCTION OF SPLEEN Assessment/Plan see problem list
[2017-03-02] MEDS: ACETAMINOPHEN 325 MG TABLET (FP) PO PRN ×2 (05:21→20:40)
[2017-03-02 07:13] LABS: EOS % 6.1 % (0-4.5); HEMATOCRIT 42.9 % (35.4-49); LYMPH % 33.5 % (8-40); MCH 29.1 pg (25.7-33.7); MCHC 32.7 g/dl (32.0-35.9); MEAN CELL VOLUME 89.1 fl (80-96); MEAN PLT VOLUME 9.3 fl (7.5-11.1); MONO % 8.2 % (3.8-10.2); NEUT % 51.2 % (42.8-82.8); PLATELET COUNT 191 K/MM3 (134-434); RBC 4.82 M/mm3 (4.00-5.60); RDW 13.9 % (11.9-15.9); WHITE BLOOD COUNT 8.5 K/mm3 (4.0-10.0)
[2017-03-02 07:32] LABS: INR 1.03 (0.82-1.09); PROTHROMBIN TIME (PATIENT) 11.6 SEC (9.98-11.88)
[2017-03-02 07:34] LABS: ANION GAP 8 (8-16); BLOOD UREA NITROGEN 17 mg/dL (7-18); CALCIUM 8.8 mg/dL (8.5-10.1); CHLORIDE 102 mmol/L (98-107); CO2 29 mmol/L (21-32); CREATININE 1.1 mg/dL (0.7-1.3); GLUCOSE,RANDOM 94 mg/dL (74-106); SODIUM 139 mmol/L (136-145)
[2017-03-02] MEDS ORDERED: FLU VACCINE QUAD 60 MCG/0.5 ML (MDV 17-18) IM ONE (09:00)
[2017-03-02] MEDS ORDERED: PNEUMOC 13-VAL CONJ-DIP CRM/PF 0.5 ML DISP.SYRIN IM ONE (09:00)
--- NOTE | 2017-03-02 09:06 | PN ---
Progress Note, Physician - Current Medication List Current Medications: Active Medications Acetaminophen (Tylenol -) 650 mg PO Q6H PRN PRN Reason: PAIN Last Admin: 03/02/17 05:21 Dose: 650 mg Carvedilol (Coreg -) 6.25 mg PO BID [facility] Last Admin: 03/01/17 22:11 Dose: 6.25 mg Eplerenone (Eplerenone) 50 mg PO DAILY [facility] Heparin Sodium (Porcine) (Heparin -) 1,000 unit IVPUSH PRN PRN PRN Reason: Heparin Heparin Sodium (Porcine) (Heparin -) 5,000 unit IVPUSH PRN PRN PRN Reason: Heparin Last Admin: 03/01/17 04:45 Dose: 5,000 unit Hydrochlorothiazide (Hctz -) 25 mg PO DAILY [facility] Last Admin: 03/01/17 10:39 Dose: 25 mg HEPARIN SOD,PORK IN 0.45% NACL (Heparin-1/2ns 25,000 Units/500) 25,000 units in 500 mls @ 20 mls/hr IVPB TITR LUI; 1,000 UNITS/HR PRN Reason: Protocol Last Admin: 03/01/17 20:12 Dose: 1,150 units/hr, 23 mls/hr Morphine Sulfate (Morphine Injection -) 2 mg IVPUSH Q6H PRN PRN Reason: PAIN LEVEL 6-10 Valsartan (Diovan -) 160 mg PO DAILY [facility] Last Admin: 03/01/17 10:39 Dose: 160 mg Warfarin Sodium (Coumadin -) 5 mg PO DAILY@1800 [facility] Last Admin: 03/01/17 18:09 Dose: 5 mg - Objective Vital Signs: Vital Signs Temperature 98 F 03/02/17 05:38 Pulse Rate 67 03/02/17 05:38 Respiratory Rate 18 03/02/17 05:38 Blood Pressure 115/71 03/02/17 05:38 O2 Sat by Pulse Oximetry (%) 100 03/01/17 18:00 Labs: CBC, BMP 03/02/17 05:45 03/02/17 06:30 INR, PTT INR 1.03 (0.82-1.09) 03/02/17 06:15 Problem List - Problems (1) Splenic infarction Assessment/Plan: - Likely due to hypercoagulable state vs embolic disease - Continue cardiac monitoring concern for rupture - LD-245, WBC 10.6 - Started on Heparin in ED, will continue - Monitor PTT - Appreciate Hematology Consult - Appreciate Cardiology Consult - EKG-nsr - CBC, BMP in am - labs sent flow cytometry; cytogenectics; peripheral blood PCR for BCR; ABL, FISH, Alvin II Mutation r/o CML per heme - Morphine Sulfate prn - Gentle IVF Code(s): D73.5 - INFARCTION OF SPLEEN (2) Hypertensive cardiomyopathy Assessment/Plan: cardio on board Code(s): I11.9 - HYPERTENSIVE HEART DISEASE WITHOUT HEART FAILURE; I43 - CARDIOMYOPATHY IN DISEASES CLASSIFIED ELSEWHERE Qualifiers: Heart failure presence: without heart failure Qualified Code(s): I11.9 - Hypertensive heart disease without heart failure; I43 - Cardiomyopathy in diseases classified elsewhere; I43 - Cardiomyopathy in diseases classified elsewhere; I43 - Cardiomyopathy in diseases classified elsewhere; I43 - Cardiomyopathy in diseases classified elsewhere
[2017-03-02] MEDS: HEPARIN SOD,PORK IN 0.45% NACL 25,000 UNITS/500 ML INFUS.BAG IVPB SCH ×2 (10:00→20:32)
--- NOTE | 2017-03-02 10:00 | CON.GI ---
Consult Consult Specialty:: GI Reason for Consultation:: splenic infarct - History of Present Illness History of Present Illness: A 46 yom with know NAFLD, no apparent risk factors for viral, autoimmune, alcoholic hepatitis; no risk factors for alcoholic pancreatitis; no history of acute pancreatitis admitted with splenic infarct. No history of coagulopathy, excessive bleeding, bruising, thrombi, arrhythmia. No night sweats, weight loss. No history of malignancy. Family history non-contributory. - History Source History Provided By: Patient, Medical Record - Past Medical History Cardio/Vascular: Yes: CHF, HTN - Alcohol/Substance Use Hx Alcohol Use: No - Smoking History Smoking history: Never smoked Aproximately how many cigarettes per day: 0 Home Medications - Allergies Allergies/Adverse Reactions: Allergies Allergy/AdvReac Type Severity Reaction Status Date / Time No Known Allergies Allergy Verified 02/28/17 11:09 - Home Medications Home Medications: Ambulatory Orders Carvedilol 6.25 mg PO BID 02/28/17 Eplerenone [Inspra] 50 mg PO DAILY 02/28/17 Valsartan/Hydrochlorothiazide [Valsartan-Hctz 160-25 mg Tab] 1 each PO DAILY Family Disease History - Family Disease History Family History: Unremarkable Review of Systems Findings/Remarks: as per HPI, H&P Physical Exam-GI Vital Signs: Vital Signs Temperature 98 F 03/02/17 05:38 Pulse Rate 67 03/02/17 05:38 Respiratory Rate 18 03/02/17 05:38 Blood Pressure 115/71 03/02/17 05:38 O2 Sat by Pulse Oximetry (%) 100 03/01/17 18:00 Constitutional: Yes: Well Nourished, No Distress, Calm Eyes: Yes: Conjunctiva Clear HENT: Yes: Atraumatic Neck: Yes: Supple Cardiovascular: Yes: Regular Rate and Rhythm Respiratory: Yes: Regular ...Auscultate: Yes: Normoactive Bowel Sounds Labs: CBC, BMP 03/02/17 05:45 03/02/17 06:30 INR, PTT INR 1.03 (0.82-1.09) 03/02/17 06:15 Imaging - Results Cat Scan: Report Reviewed Problem List - Problems (1) Hypertensive cardiomyopathy Code(s): I11.9 - HYPERTENSIVE HEART DISEASE WITHOUT HEART FAILURE; I43 - CARDIOMYOPATHY IN DISEASES CLASSIFIED ELSEWHERE Qualifiers: Heart failure presence: without heart failure Qualified Code(s): I11.9 - Hypertensive heart disease without heart failure; I43 - Cardiomyopathy in diseases classified elsewhere; I43 - Cardiomyopathy in diseases classified elsewhere; I43 - Cardiomyopathy in diseases classified elsewhere; I43 - Cardiomyopathy in diseases classified elsewhere (2) Splenic infarction Code(s): D73.5 - INFARCTION OF SPLEEN Assessment/Plan A 46 yom with splenic infarction. Underlying cardiomyopathy. Hemotology work up in progress. No obvious liver, or pancreas-related etiology. Follow hematology work up r/o neoplasm, coagulopathy. r/o underlying arrhythmia Will monitor discussed with the patient
--- NOTE | 2017-03-02 10:07 | PN ---
Progress Note, Physician Chief Complaint: Events noted Not in distress History of Present Illness: Patient was seen and examined. Awake and alert. Chart was reviewed Denies chest pain, SOB or palpitations - Current Medication List Current Medications: Active Medications Acetaminophen (Tylenol -) 650 mg PO Q6H PRN PRN Reason: PAIN Last Admin: 03/02/17 05:21 Dose: 650 mg Carvedilol (Coreg -) 6.25 mg PO BID [facility] Last Admin: 03/01/17 22:11 Dose: 6.25 mg Eplerenone (Eplerenone) 50 mg PO DAILY [facility] Heparin Sodium (Porcine) (Heparin -) 1,000 unit IVPUSH PRN PRN PRN Reason: Heparin Heparin Sodium (Porcine) (Heparin -) 5,000 unit IVPUSH PRN PRN PRN Reason: Heparin Last Admin: 03/01/17 04:45 Dose: 5,000 unit Hydrochlorothiazide (Hctz -) 25 mg PO DAILY [facility] Last Admin: 03/01/17 10:39 Dose: 25 mg HEPARIN SOD,PORK IN 0.45% NACL (Heparin-1/2ns 25,000 Units/500) 25,000 units in 500 mls @ 20 mls/hr IVPB TITR LUI; 1,000 UNITS/HR PRN Reason: Protocol Last Admin: 03/01/17 20:12 Dose: 1,150 units/hr, 23 mls/hr Morphine Sulfate (Morphine Injection -) 2 mg IVPUSH Q6H PRN PRN Reason: PAIN LEVEL 6-10 Valsartan (Diovan -) 160 mg PO DAILY [facility] Last Admin: 03/01/17 10:39 Dose: 160 mg Warfarin Sodium (Coumadin -) 5 mg PO DAILY@1800 [facility] Last Admin: 03/01/17 18:09 Dose: 5 mg - Objective Vital Signs: Vital Signs Temperature 98 F 03/02/17 05:38 Pulse Rate 67 03/02/17 05:38 Respiratory Rate 18 03/02/17 05:38 Blood Pressure 115/71 03/02/17 05:38 O2 Sat by Pulse Oximetry (%) 100 03/01/17 18:00 Constitutional: Yes: Well Nourished Eyes: Yes: PERRL HENT: Yes: Atraumatic Neck: Yes: Supple Cardiovascular: Yes: Regular Rate and Rhythm, S1, S2 Respiratory: Yes: CTA Bilaterally Gastrointestinal: Yes: Normal Bowel Sounds, Soft. No: Tenderness Edema: No Additional Findings/Remarks: - Review of Systems Constitutional: Denies: Weakness. denies: Chills, Fever Cardiovascular: denies: Chest Pain, denies: Palpitations, Shortness of Breath Respiratory: denies: Cough, Hemoptysis, Orthopnea, PND, SOB, SOB on Exertion Gastrointestinal: denies: Abdominal Pain, Constipation, Diarrhea, Melena, Nausea , Rectal Bleeding, Vomiting Genitourinary: denies: Dysuria, Hematuria Musculoskeletal: denies: Joint Pain Neurological: Denies: Weakness. denies: Dizziness, Headache, Seizure, Syncope Labs: CBC, BMP 03/02/17 05:45 03/02/17 06:30 INR, PTT INR 1.03 (0.82-1.09) 03/02/17 06:15 Problem List - Problems (1) Hypertensive cardiomyopathy Code(s): I11.9 - HYPERTENSIVE HEART DISEASE WITHOUT HEART FAILURE; I43 - CARDIOMYOPATHY IN DISEASES CLASSIFIED ELSEWHERE Qualifiers: Heart failure presence: without heart failure Qualified Code(s): I11.9 - Hypertensive heart disease without heart failure; I43 - Cardiomyopathy in diseases classified elsewhere; I43 - Cardiomyopathy in diseases classified elsewhere; I43 - Cardiomyopathy in diseases classified elsewhere; I43 - Cardiomyopathy in diseases classified elsewhere (2) Splenic infarction Code(s): D73.5 - INFARCTION OF SPLEEN Assessment/Plan 1. Splenic infarct - etiology to be determined, rule out PAF and embolic source and hypercoagulable states 2. Hypertensive cardiomyopathy, euvolemic PLAN: 1. Transthoracic echocardiography to assess LV/RV and valvular function 2. martial arts instructor to monitor for PAF. If unrevealing, may need either loop event monitor for extended monitoring of arrhythmias 3. Continue Carvedilol 6.25 bid, Inspra 50 qd and Diovan HCT 160/25 qd 4. Heparin drip and Coumadin per INR. Continue analgesia as needed 5. Hypercoagulable work up as per Hematology Further plans are to follow. Patient was seen, examined and chart reviewed for 25 minutes Mal Coulter MD
[2017-03-02] MEDS ORDERED: PT OWN MED DRAWER 7, Y5N ONE ×2 (10:25→11:46)
[2017-03-02] MEDS: HYDROCHLOROTHIAZIDE 25 MG TABLET (FP) PO SCH (10:36)
[2017-03-02] MEDS: VALSARTAN 160 MG TABLET (UD) PO SCH (10:36)
[2017-03-02] MEDS: CARVEDILOL 6.25 MG TABLET (FP) PO SCH ×3 (10:36→21:21)
[2017-03-02] MEDS: WARFARIN NA 5 MG TABLET (UD) PO SCH (17:42)
[2017-03-02] MEDS: EPLERENONE 25 MG TABLET PO SCH (17:43)
--- NOTE | 2017-03-02 18:02 | CON.GU ---
Consult Consult Specialty:: Referred by:: medicine Reason for Consultation:: hematuria - History of Present Illness Chief Complaint: hematuria History of Present Illness: 46 year old male who denies any specific urinary complaints and personal or family history had SOB and HTN and abdominal pain. He is diagnosed with an acute splenic infarct. He is also noted to have 2+ blood on UA. No risk factors or hazardous material exposure./ - History Source History Provided By: Patient, Medical Record Limitations to Obtaining History: No Limitations - Past Medical History Cardio/Vascular: Yes: CHF, HTN Renal/: No: Renal Failure, Renal Inusuff, BPH, Cancer, Hematuria, Hemodialysis , Neurogenic Bladder, Renal Calculi, UTI, Other - Alcohol/Substance Use Hx Alcohol Use: No - Smoking History Smoking history: Never smoked Aproximately how many cigarettes per day: 0 Home Medications - Allergies Allergies/Adverse Reactions: Allergies Allergy/AdvReac Type Severity Reaction Status Date / Time No Known Allergies Allergy Verified 02/28/17 11:09 - Home Medications Home Medications: Ambulatory Orders Carvedilol 6.25 mg PO BID 02/28/17 Eplerenone [Inspra] 50 mg PO DAILY 02/28/17 Valsartan/Hydrochlorothiazide [Valsartan-Hctz 160-25 mg Tab] 1 each PO DAILY Review of Systems - Review of Systems Genitourinary: reports: No Symptoms Physical Exam- Vital Signs: Vital Signs Temperature 98.2 F 03/02/17 15:51 Pulse Rate 72 03/02/17 15:51 Respiratory Rate 18 03/02/17 15:51 Blood Pressure 113/66 03/02/17 15:51 O2 Sat by Pulse Oximetry (%) 98 03/02/17 09:00 Renal/: No: CVA Tenderness - Left, CVA Tenderness - Right, Juarez Present, Hematuria Labs: CBC, BMP 03/02/17 05:45 03/02/17 06:30 Imaging - Results Cat Scan: Report Reviewed Problem List - Problems (1) Microhematuria Assessment/Plan: no acute findings on CT related to microheme. recommend outpatient cystoscopy Code(s): R31.29 - OTHER MICROSCOPIC HEMATURIA
[2017-03-02] MEDS: HEPARIN NA (PORCINE) 5,000 UNITS/ML 1ML VIAL IVPUSH PRN (20:32)
[2017-03-03 03:54] LABS: INR 1.01 (0.82-1.09); PROTHROMBIN TIME (PATIENT) 11.4 SEC (9.98-11.88)
[2017-03-03] MEDS: HEPARIN NA (PORCINE) 5,000 UNITS/ML 1ML VIAL IVPUSH PRN ×2 (06:06→14:25)
--- NOTE | 2017-03-03 07:57 | PN ---
Progress Note (short form) - Note Progress Note: Chief Complaint: Events noted, notes reviewed, denies any chest pain or dyspnea , echocardiography pending History of Present Illness: Seen and examined on telemetry. Events noted, notes reviewed, denies any chest pain or dyspnea, echocardiography pending Reporting reaction to Flu vaccination - Current Medication List Current Medications: Current Medications Acetaminophen (Tylenol -) 650 mg PO Q6H PRN PRN Reason: PAIN Last Admin: 03/02/17 20:40 Dose: 650 mg Carvedilol (Coreg -) 6.25 mg PO BID [facility] Last Admin: 03/03/17 10:17 Dose: 6.25 mg Eplerenone (Eplerenone) 50 mg PO DAILY [facility] Last Admin: 03/03/17 10:18 Dose: 50 mg Heparin Sodium (Porcine) (Heparin -) 1,000 unit IVPUSH PRN PRN PRN Reason: Heparin Last Admin: 03/02/17 20:32 Dose: 1,000 unit Heparin Sodium (Porcine) (Heparin -) 5,000 unit IVPUSH PRN PRN PRN Reason: Heparin Last Admin: 03/03/17 06:06 Dose: 5,000 unit Hydrochlorothiazide (Hctz -) 25 mg PO DAILY [facility] Last Admin: 03/03/17 10:17 Dose: 25 mg HEPARIN SOD,PORK IN 0.45% NACL (Heparin-1/2ns 25,000 Units/500) 25,000 units in 500 mls @ 20 mls/hr IVPB TITR [facility]; 1,000 UNITS/HR PRN Reason: Protocol Last Titration: 03/03/17 06:05 Dose: 1,500 units/hr, 30 mls/hr Morphine Sulfate (Morphine Injection -) 2 mg IVPUSH Q6H PRN PRN Reason: PAIN LEVEL 6-10 Valsartan (Diovan -) 160 mg PO DAILY [facility] Last Admin: 03/03/17 10:17 Dose: 160 mg Warfarin Sodium (Coumadin -) 10 mg PO DAILY@1800 [facility] Review of Systems Cardiovascular: As noted above Respiratory: denies: denies: Cough or Sputum Production Gastrointestinal: denies: Nausea, Vomiting, Diarrhea, Constipation but reports Abdominal Discomfort Musculoskeletal: No Symptoms Reported Endocrine: No Symptoms Reported - Objective Vital Signs: Last Vital Signs Temp Pulse Resp BP Pulse Ox 98 F 88 18 138/86 96 03/03/17 10:00 03/03/17 10:00 03/03/17 10:00 03/03/17 10:00 03/02/17 21:00 Intake & Output 02/28/17 03/01/17 03/02/17 03/03/17 23:59 23:59 23:59 23:59 Intake Total 1430 926 325 Balance 1430 926 325 Weight 260 lb 260 lb Constitutional: Well Nourished Eyes: PERRLA, EOMI Neck: Supple Negative JVD Cardiovascular: S1 S2 Regular Rate and Rhythm No Murmurs Respiratory: Clear to A&P Bilaterally Gastrointestinal: Soft Benign Normal Bowel Sounds Ext: No Edema Labs: Troponin, BNP 03/03/17 08:55 Troponin I < 0.02 CBC, BMP 03/03/17 08:55 03/03/17 08:55 INR, PTT INR 1.01 (0.82-1.09) 03/03/17 02:30 Assessment/Plan ASSESSMENT: 1. Splenic infarct - etiology to be determined, differential includes paroxysmal atrial fibrillation, cardiac embolic source, hyper-coagulable states 2. Hypertensive cardiomyopathy, compensated/euvolemic 3. CKD PLAN: 1. Await trans-thoracic echocardiography to assess LV/RV and valvular functions , may require YANNICK prior to D/C 2. Recommend loop event monitor for extended monitoring of arrhythmias, as outpatient if above studies are non diagnostic 3. Continue Carvedilol and titrate dosage as needed 4. Continue Diovan and titrate dosage as needed 5. Continue Inspra and HCTZ 6. Heparin drip and Coumadin as per INR, maintaining INR 2-3 5. Hyper-coagulable evaluation as per Hematology Rosie Caro MD
--- NOTE | 2017-03-03 09:07 | PN ---
Progress Note, Physician History of Present Illness: Clinically well. Had reaction to flu shot, otherwise no events. - Current Medication List Current Medications: Active Medications Acetaminophen (Tylenol -) 650 mg PO Q6H PRN PRN Reason: PAIN Last Admin: 03/02/17 20:40 Dose: 650 mg Carvedilol (Coreg -) 6.25 mg PO BID [facility] Last Admin: 03/02/17 21:21 Dose: Not Given Eplerenone (Eplerenone) 50 mg PO DAILY [facility] Last Admin: 03/02/17 17:43 Dose: 50 mg Heparin Sodium (Porcine) (Heparin -) 1,000 unit IVPUSH PRN PRN PRN Reason: Heparin Last Admin: 03/02/17 20:32 Dose: 1,000 unit Heparin Sodium (Porcine) (Heparin -) 5,000 unit IVPUSH PRN PRN PRN Reason: Heparin Last Admin: 03/03/17 06:06 Dose: 5,000 unit Hydrochlorothiazide (Hctz -) 25 mg PO DAILY [facility] Last Admin: 03/02/17 10:36 Dose: 25 mg HEPARIN SOD,PORK IN 0.45% NACL (Heparin-1/2ns 25,000 Units/500) 25,000 units in 500 mls @ 20 mls/hr IVPB TITR [facility]; 1,000 UNITS/HR PRN Reason: Protocol Last Titration: 03/03/17 06:05 Dose: 1,500 units/hr, 30 mls/hr Morphine Sulfate (Morphine Injection -) 2 mg IVPUSH Q6H PRN PRN Reason: PAIN LEVEL 6-10 Valsartan (Diovan -) 160 mg PO DAILY [facility] Last Admin: 03/02/17 10:36 Dose: 160 mg Warfarin Sodium (Coumadin -) 10 mg PO DAILY@1800 [facility] - Objective Vital Signs: Vital Signs Temperature 98.0 F 03/03/17 05:15 Pulse Rate 77 03/03/17 05:15 Respiratory Rate 20 03/03/17 05:15 Blood Pressure 123/89 03/03/17 05:15 O2 Sat by Pulse Oximetry (%) 96 03/02/17 21:00 Constitutional: Yes: Well Nourished, No Distress, Calm Eyes: Yes: Conjunctiva Clear HENT: Yes: Atraumatic Neck: Yes: Supple Cardiovascular: Yes: Regular Rate and Rhythm Respiratory: Yes: Regular Gastrointestinal: Yes: Soft Neurological: Yes: Alert, Oriented Labs: INR, PTT INR 1.01 (0.82-1.09) 03/03/17 02:30 CBCD WBC 8.5 K/mm3 (4.0-10.0) 03/02/17 05:45 RBC 4.82 M/mm3 (4.00-5.60) 03/02/17 05:45 Hgb 14.0 GM/dL (11.7-16.9) 03/02/17 05:45 Hct 42.9 % (35.4-49) 03/02/17 05:45 MCV 89.1 fl (80-96) 03/02/17 05:45 MCHC 32.7 g/dl (32.0-35.9) 03/02/17 05:45 RDW 13.9 % (11.9-15.9) 03/02/17 05:45 Plt Count 191 K/MM3 (134-434) 03/02/17 05:45 MPV 9.3 fl (7.5-11.1) 03/02/17 05:45 CMP Sodium 139 mmol/L (136-145) 03/02/17 06:30 Potassium 4.0 mmol/L (3.5-5.1) 03/02/17 06:30 Chloride 102 mmol/L (98-107) 03/02/17 06:30 Carbon Dioxide 29 mmol/L (21-32) 03/02/17 06:30 Anion Gap 8 (8-16) 03/02/17 06:30 BUN 17 mg/dL (7-18) D 03/02/17 06:30 Creatinine 1.1 mg/dL (0.7-1.3) 03/02/17 06:30 Creat Clearance w eGFR > 60 (>60) 02/28/17 12:45 Calcium 8.8 mg/dL (8.5-10.1) 03/02/17 06:30 Total Bilirubin 1.1 mg/dL (0.2-1.0) H 02/28/17 12:45 AST 24 U/L (15-37) 02/28/17 12:45 ALT 49 U/L (12-78) 02/28/17 12:45 Alkaline Phosphatase 116 U/L (45-117) 02/28/17 12:45 Total Protein 7.4 g/dl (6.4-8.2) 02/28/17 12:45 Albumin 3.6 g/dl (3.4-5.0) 02/28/17 12:45 Problem List - Problems (1) Hypertensive cardiomyopathy Code(s): I11.9 - HYPERTENSIVE HEART DISEASE WITHOUT HEART FAILURE; I43 - CARDIOMYOPATHY IN DISEASES CLASSIFIED ELSEWHERE Qualifiers: Heart failure presence: without heart failure Qualified Code(s): I11.9 - Hypertensive heart disease without heart failure; I43 - Cardiomyopathy in diseases classified elsewhere; I43 - Cardiomyopathy in diseases classified elsewhere; I43 - Cardiomyopathy in diseases classified elsewhere; I43 - Cardiomyopathy in diseases classified elsewhere (2) Splenic infarction Code(s): D73.5 - INFARCTION OF SPLEEN Assessment/Plan A 46 yom with splenic infarction. Underlying cardiomyopathy. Hemotology work up in progress. No obvious liver, or pancreas-related etiology. Follow hematology work up r/o neoplasm, coagulopathy.
[2017-03-03] MEDS ORDERED: PT OWN MED DRAWER 7, Y5N ONE ×2 (09:11→16:43)
[2017-03-03 09:23] LABS: LYMPH % 18.4 % (8-40)
[2017-03-03 09:30] LABS: EOS % 5.3 % (0-4.5); HEMATOCRIT 46.1 % (35.4-49); HEMOGLOBIN 15.2 GM/dL (11.7-16.9); MCH 29.2 pg (25.7-33.7); MEAN CELL VOLUME 88.5 fl (80-96); MEAN PLT VOLUME 9.2 fl (7.5-11.1); MONO % 6.2 % (3.8-10.2); NEUT % 69.1 % (42.8-82.8); RBC 5.21 M/mm3 (4.00-5.60); RDW 13.8 % (11.9-15.9); WHITE BLOOD COUNT 10.1 K/mm3 (4.0-10.0)
[2017-03-03 09:53] LABS: ALBUMIN 3.3 g/dl (3.4-5.0); ANION GAP 11 (8-16); BILIRUBIN,TOTAL 0.7 mg/dL (0.2-1.0); BLOOD UREA NITROGEN 15 mg/dL (7-18); CALCIUM 8.8 mg/dL (8.5-10.1); CHLORIDE 99 mmol/L (98-107); CO2 26 mmol/L (21-32); CREATININE 1.2 mg/dL (0.7-1.3); GLUCOSE,RANDOM 143 mg/dL (74-106); POTASSIUM 3.6 mmol/L (3.5-5.1); SGOT/AST 18 U/L (15-37); SGPT/ALT 39 U/L (12-78); SODIUM 136 mmol/L (136-145); TOT PROT 7.1 g/dl (6.4-8.2)
[2017-03-03 09:56] LABS: ALK PHOS 105 U/L (45-117)
[2017-03-03] MEDS: CARVEDILOL 6.25 MG TABLET (FP) PO SCH (10:17)
[2017-03-03] MEDS: VALSARTAN 160 MG TABLET (UD) PO SCH (10:17)
[2017-03-03] MEDS: HYDROCHLOROTHIAZIDE 25 MG TABLET (FP) PO SCH (10:17)
[2017-03-03] MEDS: EPLERENONE 25 MG TABLET PO SCH (10:18)
--- NOTE | 2017-03-03 10:34 | PN ---
Progress Note, Physician History of Present Illness: feels achy--from flu shot - Current Medication List Current Medications: Active Medications Acetaminophen (Tylenol -) 650 mg PO Q6H PRN PRN Reason: PAIN Last Admin: 03/02/17 20:40 Dose: 650 mg Carvedilol (Coreg -) 6.25 mg PO BID [facility] Last Admin: 03/03/17 10:17 Dose: 6.25 mg Eplerenone (Eplerenone) 50 mg PO DAILY [facility] Last Admin: 03/03/17 10:18 Dose: 50 mg Heparin Sodium (Porcine) (Heparin -) 1,000 unit IVPUSH PRN PRN PRN Reason: Heparin Last Admin: 03/02/17 20:32 Dose: 1,000 unit Heparin Sodium (Porcine) (Heparin -) 5,000 unit IVPUSH PRN PRN PRN Reason: Heparin Last Admin: 03/03/17 06:06 Dose: 5,000 unit Hydrochlorothiazide (Hctz -) 25 mg PO DAILY [facility] Last Admin: 03/03/17 10:17 Dose: 25 mg HEPARIN SOD,PORK IN 0.45% NACL (Heparin-1/2ns 25,000 Units/500) 25,000 units in 500 mls @ 20 mls/hr IVPB TITR [facility]; 1,000 UNITS/HR PRN Reason: Protocol Last Titration: 03/03/17 06:05 Dose: 1,500 units/hr, 30 mls/hr Morphine Sulfate (Morphine Injection -) 2 mg IVPUSH Q6H PRN PRN Reason: PAIN LEVEL 6-10 Valsartan (Diovan -) 160 mg PO DAILY [facility] Last Admin: 03/03/17 10:17 Dose: 160 mg Warfarin Sodium (Coumadin -) 10 mg PO DAILY@1800 [facility] - Objective Vital Signs: Vital Signs Temperature 98 F 03/03/17 10:00 Pulse Rate 88 03/03/17 10:00 Respiratory Rate 18 03/03/17 10:00 Blood Pressure 138/86 03/03/17 10:00 O2 Sat by Pulse Oximetry (%) 96 03/02/17 21:00 Cardiovascular: Yes: Regular Rate and Rhythm Respiratory: Yes: Regular, CTA Bilaterally Gastrointestinal: Yes: Normal Bowel Sounds, Soft Labs: CBC, BMP 03/03/17 08:55 03/03/17 08:55 INR, PTT INR 1.01 (0.82-1.09) 03/03/17 02:30 Problem List - Problems (1) Splenic infarction Assessment/Plan: - Likely due to hypercoagulable state vs embolic disease - Continue cardiac monitoring concern for rupture - LD-245, WBC 10.6 - Started on Heparin in ED, will continue -coumadin and monitor inr - Monitor PTT - Appreciate Hematology Consult--follow up - Appreciate Cardiology Consult - EKG-nsr - CBC, BMP in am - labs sent flow cytometry; cytogenectics; peripheral blood PCR for BCR; ABL, FISH, Alvin II Mutation r/o CML per heme - Morphine Sulfate prn - Gentle IVF Code(s): D73.5 - INFARCTION OF SPLEEN (2) Hypertensive cardiomyopathy Assessment/Plan: cardio on board Code(s): I11.9 - HYPERTENSIVE HEART DISEASE WITHOUT HEART FAILURE; I43 - CARDIOMYOPATHY IN DISEASES CLASSIFIED ELSEWHERE Qualifiers: Heart failure presence: without heart failure Qualified Code(s): I11.9 - Hypertensive heart disease without heart failure; I43 - Cardiomyopathy in diseases classified elsewhere; I43 - Cardiomyopathy in diseases classified elsewhere; I43 - Cardiomyopathy in diseases classified elsewhere; I43 - Cardiomyopathy in diseases classified elsewhere
--- NOTE | 2017-03-03 11:47 | PN ---
Progress Note (short form) - Note Progress Note: Patient seen and examined continues to feels better Cor: RSR, No murmurs, No gallops Lungs: Clear to P&A Abd: Soft, Normal bowel sounds, No organomegaly Ext:No significant edema Skin: No rashes, Integument intact Temp Pulse Resp BP Pulse Ox 98 F 88 18 138/86 96 03/03/17 10:00 03/03/17 10:00 03/03/17 10:00 03/03/17 10:00 03/02/17 21:00 CBC, BMP 03/03/17 08:55 03/03/17 08:55 Current Medications Generic Name Dose Route Start Last Admin Trade Name Freq PRN Reason Stop Dose Admin Acetaminophen 650 mg 03/01/17 20:29 03/02/17 20:40 Tylenol - PO 650 mg Q6H PRN Administration PAIN Carvedilol 12.5 mg 03/03/17 10:56 Coreg - PO BID [facility] Eplerenone 50 mg 03/02/17 10:00 03/03/17 10:18 Eplerenone PO 50 mg DAILY [facility] Administration Heparin Sodium (Porcine) 1,000 unit 02/28/17 17:51 03/02/17 20:32 Heparin - IVPUSH 1,000 unit PRN PRN Administration Heparin Heparin Sodium (Porcine) 5,000 unit 02/28/17 17:51 03/03/17 06:06 Heparin - IVPUSH 5,000 unit PRN PRN Administration Heparin Hydrochlorothiazide 25 mg 03/01/17 10:00 03/03/17 10:17 Hctz - PO 25 mg DAILY [facility] Administration HEPARIN SOD,PORK IN 0.45% NACL 25,000 units in 500 mls @ 20 mls/hr 03/01/17 20 :00 03/03/17 06:05 Heparin-1/2ns 25,000 Units/500 IVPB 1,500 units/hr TITR LUI 30 mls/hr Protocol Titration 1,000 UNITS/HR Morphine Sulfate 2 mg 02/28/17 23:00 Morphine Injection - IVPUSH Q6H PRN PAIN LEVEL 6-10 Valsartan 160 mg 03/01/17 10:00 03/03/17 10:17 Diovan - PO 160 mg DAILY [facility] Administration Warfarin Sodium 10 mg 03/03/17 08:07 Coumadin - PO DAILY@1800 [facility] NEW splenic Infarct Hypertensive Cardiomyopathy. Hematology w/u in progress Thrombophilia as an OP pino Re: Systemic AC, d/w Cardiology about NOACs. At this time, would be 'off-label' to consider NOACs as per discussion, will await TTE/YANNICK and might be a possibility that a NOAC could be considered. for now, he remains on Heparin to coumadin bridge will need to closely follow with us as outpatient once discharged
[2017-03-03 13:19] LABS: PLATELET ESTIMATE ADEQUATE
[2017-03-03 14:01] LABS: INR 1.1 (0.82-1.09); PROTHROMBIN TIME (PATIENT) 12.4 SEC (9.98-11.88)
[2017-03-03] MEDS: HEPARIN SOD,PORK IN 0.45% NACL 25,000 UNITS/500 ML INFUS.BAG IVPB SCH ×2 (14:26→22:36)
[2017-03-03] MEDS: WARFARIN NA 5 MG TABLET (UD) PO SCH (17:51)
[2017-03-03] MEDS: CARVEDILOL 12.5 MG TABLET (FP) PO SCH (22:01)
--- NOTE | 2017-03-04 07:38 | PN ---
Progress Note, Physician History of Present Illness: feels achy--from flu shot - Current Medication List Current Medications: Active Medications Acetaminophen (Tylenol -) 650 mg PO Q6H PRN PRN Reason: PAIN Last Admin: 03/02/17 20:40 Dose: 650 mg Carvedilol (Coreg -) 12.5 mg PO BID [facility] Last Admin: 03/03/17 22:01 Dose: 12.5 mg Eplerenone (Eplerenone) 50 mg PO DAILY [facility] Last Admin: 03/03/17 10:18 Dose: 50 mg Heparin Sodium (Porcine) (Heparin -) 1,000 unit IVPUSH PRN PRN PRN Reason: Heparin Last Admin: 03/03/17 14:25 Dose: 1,000 unit Heparin Sodium (Porcine) (Heparin -) 5,000 unit IVPUSH PRN PRN PRN Reason: Heparin Last Admin: 03/03/17 06:06 Dose: 5,000 unit Hydrochlorothiazide (Hctz -) 25 mg PO DAILY [facility] Last Admin: 03/03/17 10:17 Dose: 25 mg HEPARIN SOD,PORK IN 0.45% NACL (Heparin-1/2ns 25,000 Units/500) 25,000 units in 500 mls @ 20 mls/hr IVPB TITR [facility]; 1,000 UNITS/HR PRN Reason: Protocol Last Admin: 03/03/17 22:36 Dose: 1,600 units/hr, 32 mls/hr Valsartan (Diovan -) 160 mg PO DAILY [facility] Last Admin: 03/03/17 10:17 Dose: 160 mg Warfarin Sodium (Coumadin -) 10 mg PO DAILY@1800 [facility] Last Admin: 03/03/17 17:51 Dose: 10 mg - Objective Vital Signs: Vital Signs Temperature 98.0 F 03/04/17 06:00 Pulse Rate 55 L 03/04/17 06:00 Respiratory Rate 20 03/04/17 06:00 Blood Pressure 101/58 03/04/17 06:00 O2 Sat by Pulse Oximetry (%) 95 03/03/17 21:00 Cardiovascular: Yes: Regular Rate and Rhythm Respiratory: Yes: Regular, CTA Bilaterally Gastrointestinal: Yes: Normal Bowel Sounds, Soft Labs: CBC, BMP 03/03/17 08:55 03/03/17 08:55 INR, PTT INR 1.10 (0.82-1.09) 03/03/17 12:40 Problem List - Problems (1) Splenic infarction Assessment/Plan: - Likely due to hypercoagulable state vs embolic disease - Continue cardiac monitoring concern for rupture - LD-245, WBC 10.6 - Started on Heparin in ED, will continue -coumadin and monitor inr - Monitor PTT - Appreciate Hematology Consult--follow up - Appreciate Cardiology Consult - EKG-nsr - CBC, BMP in am - labs sent flow cytometry; cytogenectics; peripheral blood PCR for BCR; ABL, FISH, Alvin II Mutation r/o CML per heme - Morphine Sulfate prn - Gentle IVF Code(s): D73.5 - INFARCTION OF SPLEEN (2) Hypertensive cardiomyopathy Assessment/Plan: cardio on board Code(s): I11.9 - HYPERTENSIVE HEART DISEASE WITHOUT HEART FAILURE; I43 - CARDIOMYOPATHY IN DISEASES CLASSIFIED ELSEWHERE Qualifiers: Heart failure presence: without heart failure Qualified Code(s): I11.9 - Hypertensive heart disease without heart failure; I43 - Cardiomyopathy in diseases classified elsewhere; I43 - Cardiomyopathy in diseases classified elsewhere; I43 - Cardiomyopathy in diseases classified elsewhere; I43 - Cardiomyopathy in diseases classified elsewhere
--- NOTE | 2017-03-04 08:05 | EKG ---
Test Reason : Blood Pressure : / mmHG Vent. Rate : 079 BPM Atrial Rate : 079 BPM P-R Int : 184 ms QRS Dur : 122 ms QT Int : 400 ms P-R-T Axes : 051 -38 122 degrees QTc Int : 458 ms NORMAL SINUS RHYTHM LEFT AXIS DEVIATION LEFT VENTRICULAR HYPERTROPHY WITH QRS WIDENING AND REPOLARIZATION ABNORMALITY ABNORMAL ECG WHEN COMPARED WITH ECG OF 28-FEB-2017 21:57, NO SIGNIFICANT CHANGE WAS FOUND Confirmed by LONNIE COOK, NEHAL ([id number]) on 03/04/2017 8:05:08 AM Referred By: Aleta REYES Confirmed By:NEHAL FLEMING MD
[2017-03-04 08:10] LABS: INR 1.31 (0.82-1.09); PROTHROMBIN TIME (PATIENT) 14.8 SEC (9.98-11.88)
[2017-03-04] MEDS: HEPARIN SOD,PORK IN 0.45% NACL 25,000 UNITS/500 ML INFUS.BAG IVPB SCH ×3 (09:28→23:06)
[2017-03-04] MEDS: HEPARIN NA (PORCINE) 5,000 UNITS/ML 1ML VIAL IVPUSH PRN ×2 (09:28→16:56)
--- NOTE | 2017-03-04 11:02 | PN ---
Progress Note, Physician History of Present Illness: LUQ discomfort waxes and wanes. Remains in SR without PAF. - Current Medication List Current Medications: Active Medications Acetaminophen (Tylenol -) 650 mg PO Q6H PRN PRN Reason: PAIN Last Admin: 03/02/17 20:40 Dose: 650 mg Carvedilol (Coreg -) 12.5 mg PO BID [facility] Last Admin: 03/03/17 22:01 Dose: 12.5 mg Eplerenone (Eplerenone) 50 mg PO DAILY [facility] Last Admin: 03/03/17 10:18 Dose: 50 mg Heparin Sodium (Porcine) (Heparin -) 1,000 unit IVPUSH PRN PRN PRN Reason: Heparin Last Admin: 03/04/17 09:28 Dose: 1,000 unit Heparin Sodium (Porcine) (Heparin -) 5,000 unit IVPUSH PRN PRN PRN Reason: Heparin Last Admin: 03/03/17 06:06 Dose: 5,000 unit Hydrochlorothiazide (Hctz -) 25 mg PO DAILY [facility] Last Admin: 03/03/17 10:17 Dose: 25 mg HEPARIN SOD,PORK IN 0.45% NACL (Heparin-1/2ns 25,000 Units/500) 25,000 units in 500 mls @ 20 mls/hr IVPB TITR [facility]; 1,000 UNITS/HR PRN Reason: Protocol Last Admin: 03/04/17 09:28 Dose: 1,700 units/hr, 34 mls/hr Valsartan (Diovan -) 160 mg PO DAILY [facility] Last Admin: 03/03/17 10:17 Dose: 160 mg Warfarin Sodium (Coumadin -) 10 mg PO DAILY@1800 [facility] Last Admin: 03/03/17 17:51 Dose: 10 mg - Objective Vital Signs: Vital Signs Temperature 98.1 F 03/04/17 10:00 Pulse Rate 65 03/04/17 10:00 Respiratory Rate 18 03/04/17 10:00 Blood Pressure 108/56 03/04/17 10:00 O2 Sat by Pulse Oximetry (%) 95 03/03/17 21:00 Constitutional: Yes: No Distress, Calm Neck: Yes: Supple Cardiovascular: Yes: Regular Rate and Rhythm Respiratory: Yes: Regular, Diminished Gastrointestinal: Yes: Normal Bowel Sounds, Soft, Abdomen, Obese, Tenderness ( LUQ) Edema: No Labs: CBC, BMP 03/03/17 08:55 03/03/17 08:55 INR, PTT INR 1.31 (0.82-1.09) H 03/04/17 06:46 - ....Imaging EKG: Report Reviewed (Tele: MANDY no PAF) Problem List - Problems (1) Hypertensive cardiomyopathy Code(s): I11.9 - HYPERTENSIVE HEART DISEASE WITHOUT HEART FAILURE; I43 - CARDIOMYOPATHY IN DISEASES CLASSIFIED ELSEWHERE Qualifiers: Heart failure presence: without heart failure Qualified Code(s): I11.9 - Hypertensive heart disease without heart failure; I43 - Cardiomyopathy in diseases classified elsewhere; I43 - Cardiomyopathy in diseases classified elsewhere; I43 - Cardiomyopathy in diseases classified elsewhere; I43 - Cardiomyopathy in diseases classified elsewhere (2) Splenic infarction Code(s): D73.5 - INFARCTION OF SPLEEN Assessment/Plan 1. Splenic infarct - etiology to be determined, differential includes paroxysmal atrial fibrillation, cardiac embolic source, hyper-coagulable states with subtherapeutic INR 2. Hypertensive cardiomyopathy, compensated/euvolemic PLAN: 1. Await trans-thoracic echocardiography to assess LV/RV and valvular functions , may require YANNICK prior to D/C 2. Recommend loop event monitor for extended monitoring of arrhythmias, as outpatient if above studies are non diagnostic 3. Continue Carvedilol 12.5 bid and titrate dosage as needed 4. Continue Diovan 160 qd and titrate dosage as needed 5. Continue Inspra 50 qd and HCTZ 25 qd 6. Heparin drip and Coumadin as per INR, maintaining INR 2-3 7. Hypercoagulable evaluation as per Hematology 8. NOACs would be 'off-label' use, for now, he remains on Heparin to coumadin bridge. NOAcs may not be covered by insurance if off-label use.
[2017-03-04] MEDS: VALSARTAN 160 MG TABLET (UD) PO SCH (11:14)
[2017-03-04] MEDS: CARVEDILOL 12.5 MG TABLET (FP) PO SCH ×2 (11:14→21:09)
[2017-03-04] MEDS: EPLERENONE 25 MG TABLET PO SCH (11:14)
[2017-03-04] MEDS: HYDROCHLOROTHIAZIDE 25 MG TABLET (FP) PO SCH (11:14)
[2017-03-04] MEDS: WARFARIN NA 5 MG TABLET (UD) PO SCH (17:59)
[2017-03-04] MEDS: ACETAMINOPHEN 325 MG TABLET (FP) PO PRN (21:09)
[2017-03-04 22:43] LABS: HEMATOCRIT 45.1 % (35.4-49); HEMOGLOBIN 14.8 GM/dL (11.7-16.9); MCH 29.4 pg (25.7-33.7); MCHC 32.8 g/dl (32.0-35.9); MEAN CELL VOLUME 89.8 fl (80-96); RBC 5.03 M/mm3 (4.00-5.60); RDW 14.1 % (11.9-15.9); WHITE BLOOD COUNT 11.4 K/mm3 (4.0-10.0)
--- NOTE | 2017-03-05 03:34 | HP ---
CHIEF COMPLAINT: PCP: HISTORY OF PRESENT ILLNESS: ER course was notable for: (1) (2) (3) Recent Travel: PAST MEDICAL HISTORY: PAST SURGICAL HISTORY: Social History: Smoking: Alcohol: Drugs: Family History: Allergies No Known Allergies Allergy (Verified 02/28/17 11:09) HOME MEDICATIONS: Home Medications Medication Instructions Recorded Carvedilol 6.25 mg PO BID 02/28/17 Eplerenone [Inspra] 50 mg PO DAILY 02/28/17 Valsartan/Hydrochlorothiazide 1 each PO DAILY 02/28/17 [Valsartan-Hctz 160-25 mg Tab] REVIEW OF SYSTEMS CONSTITUTIONAL: Absent: fever, chills, diaphoresis, generalized weakness, malaise, loss of appetite, weight change HEENT: Absent: rhinorrhea, nasal congestion, throat pain, throat swelling, difficulty swallowing, mouth swelling, ear pain, eye pain, visual changes CARDIOVASCULAR: Absent: chest pain, syncope, palpitations, irregular heart rate, lightheadedness , peripheral edema RESPIRATORY: Absent: cough, shortness of breath, dyspnea with exertion, orthopnea, wheezing, stridor, hemoptysis GASTROINTESTINAL: Absent: abdominal pain, abdominal distension, nausea, vomiting, diarrhea, constipation, melena, hematochezia GENITOURINARY: Absent: dysuria, frequency, urgency, hesitancy, hematuria, flank pain, genital pain MUSCULOSKELETAL: Absent: myalgia, arthralgia, joint swelling, back pain, neck pain SKIN: Absent: rash, itching, pallor HEMATOLOGIC/IMMUNOLOGIC: Absent: easy bleeding, easy bruising, lymphadenopathy, frequent infections ENDOCRINE: Absent: unexplained weight gain, unexplained weight loss, heat intolerance, cold intolerance NEUROLOGIC: Absent: headache, focal weakness or paresthesias, dizziness, unsteady gait, seizure, mental status changes, bladder or bowel incontinence PSYCHIATRIC: Absent: anxiety, depression, suicidal or homicidal ideation, hallucinations. PHYSICAL EXAMINATION Vital Signs - 24 hr 03/04/17 03/04/17 03/04/17 06:00 09:00 10:00 Temperature 98.0 F 98.1 F Pulse Rate 55 L 65 Respiratory 20 18 Rate Blood Pressure 101/58 108/56 O2 Sat by Pulse 98 Oximetry (%) 03/04/17 03/04/17 03/04/17 11:03 15:44 17:00 Temperature 98.7 F 98.0 F Pulse Rate 62 68 70 Respiratory 18 18 Rate Blood Pressure 106/54 113/71 112/57 O2 Sat by Pulse Oximetry (%) 03/04/17 03/04/17 03/04/17 18:34 20:00 21:00 Temperature 98.1 F 98.9 F Pulse Rate 70 77 Respiratory 20 20 20 Rate Blood Pressure 118/67 128/69 O2 Sat by Pulse 96 Oximetry (%) 03/05/17 02:08 Temperature 97.8 F Pulse Rate 56 L Respiratory 20 Rate Blood Pressure 86/47 O2 Sat by Pulse Oximetry (%) GENERAL: Awake, alert, and fully oriented, in no acute distress. HEAD: Normal with no signs of trauma. EYES: Pupils equal, round and reactive to light, extraocular movements intact, sclera anicteric, conjunctiva clear. No lid lag. EARS, NOSE, THROAT: Ears normal, nares patent, oropharynx clear without exudates. Moist mucous membranes. NECK: Normal range of motion, supple without lymphadenopathy, JVD, or masses. LUNGS: Breath sounds equal, clear to auscultation bilaterally. No wheezes, and no crackles. No accessory muscle use. HEART: Regular rate and rhythm, normal S1 and S2 without murmur, rub or gallop. ABDOMEN: Soft, nontender, not distended, normoactive bowel sounds, no guarding, no rebound, no masses. No hepatomegaly or splenomegaly. MUSCULOSKELETAL: Normal range of motion at all joints. No bony deformities or tenderness. No CVA tenderness. UPPER EXTREMITIES: 2+ pulses, warm, well-perfused. No cyanosis. No clubbing. No peripheral edema. LOWER EXTREMITIES: 2+ pulses, warm, well-perfused. No calf tenderness. No peripheral edema. NEUROLOGICAL: Cranial nerves II-XII intact. Normal speech. Normal gait. PSYCHIATRIC: Cooperative. Good eye contact. Appropriate mood and affect. SKIN: Warm, dry, normal turgor, no rashes or lesions noted, normal capillary refill. Laboratory Results - last 24 hr 03/04/17 03/04/17 03/04/17 06:46 06:46 15:45 WBC RBC Hgb Hct MCV MCH MCHC RDW Plt Count Platelet Comment PT with INR 14.80 H INR 1.31 H PTT (Actin FS) 45.5 H 32.8 Lactic Acid 03/04/17 03/04/1718 21:45 21:45 21:45 WBC 11.4 H RBC 5.03 Hgb 14.8 Hct 45.1 MCV 89.8 MCH 29.4 MCHC 32.8 RDW 14.1 Plt Count No Result Required. Platelet Comment PT with INR INR PTT (Actin FS) 75.5 H D Lactic Acid 1.2 ASSESSMENT/PLAN:
--- NOTE | 2017-03-05 03:37 | HOSP ---
Subjective - Review of Symptoms Events since last encounter: Hospitalist Encounter Notified by nurse that the patient reports right lateral hip pain with numbness after moving in his bed. Arrived to bedside, patient is awake, alert and oriented, reports sharp left hip pain with numbness. A This is a 46 y/o male with a medical history of Hypertensive Cardiomyopathy. Admitted [facility] for Splenic Infarct. Patient is on a Heparin Drip. Arrived to bedside, patient is awake, alert and oriented, reports sharp left hip pain with numbness. Patient denies SOB, CP, palpitations VSS Likely secondary to muscular pull or pinched nerve. Low threshold for DVT since patient is on a Heparin Drip P Reposition patient with a pillow or roll under R- hip Consider doppler of R- Hip if condition worsens RN to notify Primary of overnight events Pain meds prn Will continue to monitor Physical Examination Vital Signs: Vital Signs Temperature 97.8 F 03/05/17 02:08 Pulse Rate 56 L 03/05/17 02:08 Respiratory Rate 20 03/05/17 02:08 Blood Pressure 86/47 03/05/17 02:08 O2 Sat by Pulse Oximetry (%) 96 03/04/17 21:00 Labs: CBC, BMP 03/04/17 21:45 03/03/17 08:55
[2017-03-05 08:23] LABS: INR 1.62 (0.82-1.09); PROTHROMBIN TIME (PATIENT) 18.3 SEC (9.98-11.88)
--- NOTE | 2017-03-05 08:27 | PN ---
Progress Note, Physician History of Present Illness: feels better this am no pain - Current Medication List Current Medications: Active Medications Acetaminophen (Tylenol -) 650 mg PO Q6H PRN PRN Reason: PAIN Last Admin: 03/04/17 21:09 Dose: 650 mg Carvedilol (Coreg -) 12.5 mg PO BID [facility] Last Admin: 03/04/17 21:09 Dose: 12.5 mg Eplerenone (Eplerenone) 50 mg PO DAILY [facility] Last Admin: 03/04/17 11:14 Dose: 50 mg Heparin Sodium (Porcine) (Heparin -) 1,000 unit IVPUSH PRN PRN PRN Reason: Heparin Last Admin: 03/04/17 09:28 Dose: 1,000 unit Heparin Sodium (Porcine) (Heparin -) 5,000 unit IVPUSH PRN PRN PRN Reason: Heparin Last Admin: 03/04/17 16:56 Dose: 5,000 unit Hydrochlorothiazide (Hctz -) 25 mg PO DAILY [facility] Last Admin: 03/04/17 11:14 Dose: 25 mg HEPARIN SOD,PORK IN 0.45% NACL (Heparin-1/2ns 25,000 Units/500) 25,000 units in 500 mls @ 20 mls/hr IVPB TITR [facility]; 1,000 UNITS/HR PRN Reason: Protocol Last Admin: 03/04/17 23:06 Dose: 1,850 units/hr, 37 mls/hr Valsartan (Diovan -) 160 mg PO DAILY [facility] Last Admin: 03/04/17 11:14 Dose: 160 mg Warfarin Sodium (Coumadin -) 10 mg PO DAILY@1800 [facility] Last Admin: 03/04/17 17:59 Dose: 10 mg - Objective Vital Signs: Vital Signs Temperature 97.8 F 03/05/17 02:08 Pulse Rate 56 L 03/05/17 02:08 Respiratory Rate 20 03/05/17 02:08 Blood Pressure 100/49 03/05/17 02:08 O2 Sat by Pulse Oximetry (%) 96 03/04/17 21:00 Cardiovascular: Yes: Regular Rate and Rhythm Respiratory: Yes: Regular, CTA Bilaterally Gastrointestinal: Yes: Normal Bowel Sounds, Soft Labs: CBC, BMP 03/04/17 21:45 03/03/17 08:55 INR, PTT INR 1.31 (0.82-1.09) H 03/04/17 06:46 Problem List - Problems (1) Splenic infarction Assessment/Plan: - Likely due to hypercoagulable state vs embolic disease - Continue cardiac monitoring concern for rupture - LD-245, WBC 10.6 - Started on Heparin in ED, will continue -coumadin and monitor inr - Monitor PTT - Appreciate Hematology Consult--follow up - Appreciate Cardiology Consult - EKG-nsr - CBC, BMP in am - labs sent flow cytometry; cytogenectics; peripheral blood PCR for BCR; ABL, FISH, Alvin II Mutation r/o CML per heme - Morphine Sulfate prn - Gentle IVF Code(s): D73.5 - INFARCTION OF SPLEEN (2) Hypertensive cardiomyopathy Assessment/Plan: cardio on board Code(s): I11.9 - HYPERTENSIVE HEART DISEASE WITHOUT HEART FAILURE; I43 - CARDIOMYOPATHY IN DISEASES CLASSIFIED ELSEWHERE Qualifiers: Heart failure presence: without heart failure Qualified Code(s): I11.9 - Hypertensive heart disease without heart failure; I43 - Cardiomyopathy in diseases classified elsewhere; I43 - Cardiomyopathy in diseases classified elsewhere; I43 - Cardiomyopathy in diseases classified elsewhere; I43 - Cardiomyopathy in diseases classified elsewhere (3) Muscle pain Assessment/Plan: monitor Code(s): M79.1 - MYALGIA
[2017-03-05] MEDS: HEPARIN SOD,PORK IN 0.45% NACL 25,000 UNITS/500 ML INFUS.BAG IVPB SCH ×3 (08:54→21:28)
[2017-03-05] MEDS ORDERED: PT OWN MED DRAWER 7, Y5N ONE (09:37)
[2017-03-05] MEDS: VALSARTAN 160 MG TABLET (UD) PO SCH (09:38)
[2017-03-05] MEDS: CARVEDILOL 12.5 MG TABLET (FP) PO SCH ×2 (09:38→21:26)
[2017-03-05] MEDS: HYDROCHLOROTHIAZIDE 25 MG TABLET (FP) PO SCH (09:39)
[2017-03-05] MEDS: EPLERENONE 25 MG TABLET PO SCH (09:39)
[2017-03-05 10:14] LABS: BASO % 1.2 % (0-2.0); EOS % 7.2 % (0-4.5); HEMATOCRIT 46.8 % (35.4-49); HEMOGLOBIN 15.4 GM/dL (11.7-16.9); LYMPH % 25.6 % (8-40); MCH 29.3 pg (25.7-33.7); MEAN PLT VOLUME 9.3 fl (7.5-11.1); MONO % 9.5 % (3.8-10.2); NEUT % 56.5 % (42.8-82.8); RBC 5.26 M/mm3 (4.00-5.60); RDW 13.9 % (11.9-15.9); WHITE BLOOD COUNT 8.9 K/mm3 (4.0-10.0)
[2017-03-05 10:32] LABS: ALBUMIN 3.4 g/dl (3.4-5.0); ANION GAP 9 (8-16); BILIRUBIN,TOTAL 0.4 mg/dL (0.2-1.0); BLOOD UREA NITROGEN 20 mg/dL (7-18); CALCIUM 8.5 mg/dL (8.5-10.1); CHLORIDE 102 mmol/L (98-107); CO2 26 mmol/L (21-32); CREATININE 1.1 mg/dL (0.7-1.3); GLUCOSE,RANDOM 93 mg/dL (74-106); POTASSIUM 4.2 mmol/L (3.5-5.1); SGOT/AST 27 U/L (15-37); SGPT/ALT 49 U/L (12-78); SODIUM 137 mmol/L (136-145); TOT PROT 7.2 g/dl (6.4-8.2)
[2017-03-05 10:33] LABS: ALK PHOS 98 U/L (45-117)
--- NOTE | 2017-03-05 10:36 | PN ---
Progress Note, Physician History of Present Illness: LUQ discomfort waxes and wanes. Remains in SR without PAF. Abd and pelvic CT shows stable splenic infarct. - Current Medication List Current Medications: Active Medications Acetaminophen (Tylenol -) 650 mg PO Q6H PRN PRN Reason: PAIN Last Admin: 03/04/17 21:09 Dose: 650 mg Carvedilol (Coreg -) 12.5 mg PO BID [facility] Last Admin: 03/05/17 09:38 Dose: 12.5 mg Eplerenone (Eplerenone) 50 mg PO DAILY [facility] Last Admin: 03/05/17 09:39 Dose: 50 mg Heparin Sodium (Porcine) (Heparin -) 1,000 unit IVPUSH PRN PRN PRN Reason: Heparin Last Admin: 03/04/17 09:28 Dose: 1,000 unit Heparin Sodium (Porcine) (Heparin -) 5,000 unit IVPUSH PRN PRN PRN Reason: Heparin Last Admin: 03/04/17 16:56 Dose: 5,000 unit Hydrochlorothiazide (Hctz -) 25 mg PO DAILY [facility] Last Admin: 03/05/17 09:39 Dose: 25 mg HEPARIN SOD,PORK IN 0.45% NACL (Heparin-1/2ns 25,000 Units/500) 25,000 units in 500 mls @ 20 mls/hr IVPB TITR [facility]; 1,000 UNITS/HR PRN Reason: Protocol Last Admin: 03/05/17 08:54 Dose: 1,850 units/hr, 37 mls/hr Valsartan (Diovan -) 160 mg PO DAILY [facility] Last Admin: 03/05/17 09:38 Dose: 160 mg Warfarin Sodium (Coumadin -) 10 mg PO DAILY@1800 [facility] Last Admin: 03/04/17 17:59 Dose: 10 mg - Objective Vital Signs: Vital Signs Temperature 97.8 F 03/05/17 02:08 Pulse Rate 56 L 03/05/17 02:08 Respiratory Rate 20 03/05/17 02:08 Blood Pressure 100/49 03/05/17 02:08 O2 Sat by Pulse Oximetry (%) 96 03/04/17 21:00 Constitutional: Yes: No Distress, Calm Neck: Yes: Supple Cardiovascular: Yes: Regular Rate and Rhythm Respiratory: Yes: Regular, Diminished Gastrointestinal: Yes: Normal Bowel Sounds, Soft, Tenderness (LUQ) Edema: No Labs: CBC, BMP 03/05/17 09:45 03/05/17 09:45 INR, PTT INR 1.62 (0.82-1.09) H 03/05/17 06:02 - ....Imaging EKG: Report Reviewed (Tele: SR w/o PAF) Problem List - Problems (1) Hypertensive cardiomyopathy Code(s): I11.9 - HYPERTENSIVE HEART DISEASE WITHOUT HEART FAILURE; I43 - CARDIOMYOPATHY IN DISEASES CLASSIFIED ELSEWHERE Qualifiers: Heart failure presence: without heart failure Qualified Code(s): I11.9 - Hypertensive heart disease without heart failure; I43 - Cardiomyopathy in diseases classified elsewhere; I43 - Cardiomyopathy in diseases classified elsewhere; I43 - Cardiomyopathy in diseases classified elsewhere; I43 - Cardiomyopathy in diseases classified elsewhere (2) Splenic infarction Code(s): D73.5 - INFARCTION OF SPLEEN (3) Systolic dysfunction without heart failure Code(s): I51.9 - HEART DISEASE, UNSPECIFIED Assessment/Plan TTE shows moderate global HK LVEF 40% without sig valve abnl 1. Splenic infarct - etiology to be determined, differential includes paroxysmal atrial fibrillation, cardiac embolic source, hypercoagulable states with subtherapeutic INR 2. Hypertensive cardiomyopathy, compensated/euvolemic 3. LV systolic dysfuncttion (moderate) PLAN: 1. Plan for YANNICK to evaluate for intracardiac thrombus 2. Recommend loop event monitor for extended monitoring of arrhythmias, as outpatient if above studies are non diagnostic 3. Continue Carvedilol 12.5 bid and titrate dosage as needed 4. Continue Diovan 160 qd and titrate dosage as needed 5. Continue Inspra 50 qd and HCTZ 25 qd 6. Heparin drip and Coumadin as per INR, maintaining INR 2-3 7. Hypercoagulable evaluation as per Hematology 8. NOACs would be 'off-label' use, for now, he remains on Heparin to coumadin bridge. NOAcs may not be covered by insurance if off-label use.
--- NOTE | 2017-03-05 11:02 | PN ---
Progress Note (short form) - Note Progress Note: Patient seen and examined Had pain. now feeling better Cor: RSR, No murmurs, No gallops Lungs: Clear to P&A Abd: Soft, Normal bowel sounds, No organomegaly Ext:No significant edema Skin: No rashes, Integument intact Last Vital Signs Temp Pulse Resp BP Pulse Ox 97.8 F 56 L 20 100/49 96 03/05/17 02:08 03/05/17 02:08 03/05/17 02:08 03/05/17 02:08 03/04/17 21:00 CBC, BMP 03/05/17 09:45 03/05/17 09:45 Current Medications Generic Name Dose Route Start Last Admin Trade Name Freq PRN Reason Stop Dose Admin Acetaminophen 650 mg 03/01/17 20:29 03/04/17 21:09 Tylenol - PO 650 mg Q6H PRN Administration PAIN Carvedilol 12.5 mg 03/03/17 10:56 03/05/17 09:38 Coreg - PO 12.5 mg BID [facility] Administration Eplerenone 50 mg 03/02/17 10:00 03/05/17 09:39 Eplerenone PO 50 mg DAILY [facility] Administration Heparin Sodium (Porcine) 1,000 unit 02/28/17 17:51 03/04/17 09:28 Heparin - IVPUSH 1,000 unit PRN PRN Administration Heparin Heparin Sodium (Porcine) 5,000 unit 02/28/17 17:51 03/04/17 16:56 Heparin - IVPUSH 5,000 unit PRN PRN Administration Heparin Hydrochlorothiazide 25 mg 03/01/17 10:00 03/05/17 09:39 Hctz - PO 25 mg DAILY [facility] Administration HEPARIN SOD,PORK IN 0.45% NACL 25,000 units in 500 mls @ 20 mls/hr 03/01/17 20 :00 03/05/17 08:54 Heparin-1/2ns 25,000 Units/500 IVPB 1,850 units/hr TITR [facility] 37 mls/hr Protocol Administration 1,000 UNITS/HR Valsartan 160 mg 03/01/17 10:00 03/05/17 09:38 Diovan - PO 160 mg DAILY [facility] Administration Warfarin Sodium 10 mg 03/03/17 08:07 03/04/17 17:59 Coumadin - PO 10 mg DAILY@1800 [facility] Administration NEW splenic Infarct Hypertensive Cardiomyopathy. Hematology w/u in progress Thrombophilia as an OP pino For YANNICK on heparin to coumadin bridge platelet clumping noted, will order a blue top tube will need to closely follow with us as outpatient once discharged d.w pt and pts mom
[2017-03-05 12:38] LABS: ERYTHROCYTE SEDIMENTATION RATE 12 mm/hr (0-10)
--- NOTE | 2017-03-05 14:36 | PN ---
Progress Note (short form) - Note Progress Note: YANNICK (Procedure Note) Risks including but not limited to esophageal injury were discussed. Consent was obtained Official report is to follow Patient tolerated procedure. Mal Coulter MD Problem List - Problems (1) Hypertensive cardiomyopathy Code(s): I11.9 - HYPERTENSIVE HEART DISEASE WITHOUT HEART FAILURE; I43 - CARDIOMYOPATHY IN DISEASES CLASSIFIED ELSEWHERE Qualifiers: Heart failure presence: without heart failure Qualified Code(s): I11.9 - Hypertensive heart disease without heart failure; I43 - Cardiomyopathy in diseases classified elsewhere; I43 - Cardiomyopathy in diseases classified elsewhere; I43 - Cardiomyopathy in diseases classified elsewhere; I43 - Cardiomyopathy in diseases classified elsewhere (2) Splenic infarction Code(s): D73.5 - INFARCTION OF SPLEEN
[2017-03-05] MEDS: WARFARIN NA 5 MG TABLET (UD) PO SCH (18:27)
[2017-03-05] MEDS: MUPIROCIN 2% TOPICAL OINTMENT 22 GM TUBE TP SCH (21:29)
[2017-03-05] MEDS: ACETAMINOPHEN 325 MG TABLET (FP) PO PRN (22:35)
[2017-03-06] MEDS ORDERED: oxyCODONE HCL 5 MG TABLET PO ONE (03:46)
[2017-03-06 07:27] LABS: INR 2.43 (0.82-1.09); PROTHROMBIN TIME (PATIENT) 27.5 SEC (9.98-11.88)
[2017-03-06 08:08] LABS: BASO % 1.6 % (0-2.0); EOS % 5.9 % (0-4.5); HEMATOCRIT 43.5 % (35.4-49); HEMOGLOBIN 14.3 GM/dL (11.7-16.9); LYMPH % 31.2 % (8-40); MCH 29.4 pg (25.7-33.7); MCHC 32.9 g/dl (32.0-35.9); MEAN CELL VOLUME 89.4 fl (80-96); MEAN PLT VOLUME 9.5 fl (7.5-11.1); MONO % 7.6 % (3.8-10.2); NEUT % 53.7 % (42.8-82.8); PLATELET COUNT 193 K/MM3 (134-434); RBC 4.86 M/mm3 (4.00-5.60)
--- NOTE | 2017-03-06 08:52 | DS ---
Physical Examination Vital Signs: Vital Signs Temperature 97.7 F 03/06/17 05:55 Pulse Rate 59 L 03/06/17 05:55 Respiratory Rate 18 03/06/17 05:55 Blood Pressure 103/59 03/06/17 05:55 O2 Sat by Pulse Oximetry (%) 97 03/05/17 21:00 Cardiovascular: Yes: Regular Rate and Rhythm Respiratory: Yes: Regular, CTA Bilaterally Gastrointestinal: Yes: Normal Bowel Sounds, Soft Labs: CBC, BMP 03/06/17 06:45 03/05/17 09:45 Discharge Summary Reason For Visit: INFRACTION OF SPLEEN Current Active Problems Hypertensive cardiomyopathy (Acute) Microhematuria (Acute) Muscle pain (Acute) Splenic infarction (Acute) Systolic dysfunction without heart failure (Acute) Hospital Course: Patient is a 46 y/o male recently diagnosed Hypertensive Cardiomyopathy presented to the ED sent in from urgent care with L- sided abdominal pain x 4 days. Patient reports having intermittent, dull pain then sharp, burning, increased with deep inspiration. Patient denies fall or trauma. Patient denies fever, chills, cough, SOB, CP, near or true syncope, palpitations, orthopnea, PND or LE edema. Electric Meter Tester: Dr. Stahl ([facility]) - History Source History Provided By: Patient Limitations to Obtaining History: No Limitations - Past Medical History Cardio/Vascular: Yes: CHF, HTN - Problems (1) Splenic infarction Assessment/Plan: - Likely due to hypercoagulable state vs embolic disease - Continue cardiac monitoring concern for rupture - LD-245, WBC 10.6 - dc Heparin -coumadin and monitor inr - Monitor PTT - Appreciate Hematology Consult--follow up - Appreciate Cardiology Consult - EKG-nsr - CBC, BMP in am - labs sent flow cytometry; cytogenectics; peripheral blood PCR for BCR; ABL, FISH, Alvin II Mutation r/o CML per heme - Morphine Sulfate prn - Gentle IVF Code(s): D73.5 - INFARCTION OF SPLEEN (2) Hypertensive cardiomyopathy Assessment/Plan: cardio on board echo and YANNICK noted no thrombus Code(s): I11.9 - HYPERTENSIVE HEART DISEASE WITHOUT HEART FAILURE; I43 - CARDIOMYOPATHY IN DISEASES CLASSIFIED ELSEWHERE Qualifiers: Heart failure presence: without heart failure Qualified Code(s): I11.9 - Hypertensive heart disease without heart failure; I43 - Cardiomyopathy in diseases classified elsewhere; I43 - Cardiomyopathy in diseases classified elsewhere; I43 - Cardiomyopathy in diseases classified elsewhere; I43 - Cardiomyopathy in diseases classified elsewhere (3) Muscle pain Assessment/Plan: improved Code(s): M79.1 - MYALGIA Condition: Improved - Instructions Referrals: Latanya Gruber MD [Primary Care Provider] - 03/09/17 Ryan Vanegas MD [Staff Physician] - 1 Week Disposition: HOME - Home Medications Comprehensive Discharge Medication List: Ambulatory Orders Carvedilol 6.25 mg PO BID 02/28/17 Eplerenone [Inspra] 50 mg PO DAILY 02/28/17 Valsartan/Hydrochlorothiazide [Valsartan-Hctz 160-25 mg Tab] 1 each PO DAILY Acetaminophen [Tylenol .Regular Strength -] 650 mg PO Q6H PRN tablet 03/06/17 Warfarin Na [Coumadin] 7.5 mg PO DAILY@1800 #90 tablet 03/06/17
[2017-03-06] MEDS ORDERED: PT OWN MED DRAWER 7, Y5N ONE (09:03)
[2017-03-06] MEDS: MUPIROCIN 2% TOPICAL OINTMENT 22 GM TUBE TP SCH (10:11)
[2017-03-06] MEDS: VALSARTAN 160 MG TABLET (UD) PO SCH (10:11)
[2017-03-06] MEDS: CARVEDILOL 12.5 MG TABLET (FP) PO SCH (10:12)
[2017-03-06] MEDS: EPLERENONE 25 MG TABLET PO SCH (10:12)
[2017-03-06] MEDS: HYDROCHLOROTHIAZIDE 25 MG TABLET (FP) PO SCH (10:12)
--- NOTE | 2017-03-06 10:26 | PN ---
Progress Note, Physician History of Present Illness: LUQ discomfort waxes and wanes. Remains in SR without PAF. Abd and pelvic CT shows stable splenic infarct. - Current Medication List Current Medications: Active Medications Acetaminophen (Tylenol -) 650 mg PO Q6H PRN PRN Reason: PAIN Last Admin: 03/05/17 22:35 Dose: 650 mg Carvedilol (Coreg -) 12.5 mg PO BID [facility] Last Admin: 03/06/17 10:12 Dose: 12.5 mg Eplerenone (Eplerenone) 50 mg PO DAILY [facility] Last Admin: 03/06/17 10:12 Dose: 50 mg Hydrochlorothiazide (Hctz -) 25 mg PO DAILY [facility] Last Admin: 03/06/17 10:12 Dose: 25 mg Mupirocin (Bactroban 2% Ointment -) 1 applic TP DAILY [facility] Last Admin: 03/06/17 10:11 Dose: Not Given Valsartan (Diovan -) 160 mg PO DAILY [facility] Last Admin: 03/06/17 10:11 Dose: 160 mg Warfarin Sodium (Coumadin -) 10 mg PO DAILY@1800 [facility] Last Admin: 03/05/17 18:27 Dose: 10 mg - Objective Vital Signs: Vital Signs Temperature 97.7 F 03/06/17 05:55 Pulse Rate 59 L 03/06/17 05:55 Respiratory Rate 18 03/06/17 05:55 Blood Pressure 103/59 03/06/17 05:55 O2 Sat by Pulse Oximetry (%) 97 03/05/17 21:00 Constitutional: Yes: No Distress, Calm Neck: Yes: Supple Cardiovascular: Yes: Regular Rate and Rhythm Respiratory: Yes: Regular, Diminished Gastrointestinal: Yes: Normal Bowel Sounds, Soft, Abdomen, Obese, Tenderness Edema: No Labs: CBC, BMP 03/06/17 06:45 03/05/17 09:45 INR, PTT INR 2.43 (0.82-1.09) H D 03/06/17 06:45 - ....Imaging EKG: Report Reviewed (Tele: SR, no PAF) Problem List - Problems (1) Hypertensive cardiomyopathy Code(s): I11.9 - HYPERTENSIVE HEART DISEASE WITHOUT HEART FAILURE; I43 - CARDIOMYOPATHY IN DISEASES CLASSIFIED ELSEWHERE Qualifiers: Heart failure presence: without heart failure Qualified Code(s): I11.9 - Hypertensive heart disease without heart failure; I43 - Cardiomyopathy in diseases classified elsewhere; I43 - Cardiomyopathy in diseases classified elsewhere; I43 - Cardiomyopathy in diseases classified elsewhere; I43 - Cardiomyopathy in diseases classified elsewhere (2) Splenic infarction Code(s): D73.5 - INFARCTION OF SPLEEN (3) Systolic dysfunction without heart failure Code(s): I51.9 - HEART DISEASE, UNSPECIFIED Assessment/Plan 03/04/2017 TTE shows moderate global HK LVEF 40% without sig valve abnl 03/05/2017 YANNICK moderate LV dysfunction, mild-mod MR, mild TR without GREGG thrombus 1. Splenic infarct - etiology to be determined, differential includes paroxysmal atrial fibrillation, hypercoagulable states with therapeutic INR 2. Hypertensive cardiomyopathy, compensated/euvolemic 3. LV systolic dysfuncttion (moderate) PLAN: 1. Recommend loop event monitor for extended monitoring of arrhythmias, as outpatient if above studies are non diagnostic 2. Continue Carvedilol 12.5 bid and titrate dosage as needed 3. Continue Diovan 160 qd and titrate dosage as needed 4. Continue Inspra 50 qd and HCTZ 25 qd 5. Coumadin per INR, maintaining INR 2-3 6. Hypercoagulable evaluation as per Hematology 7. NOACs would be 'off-label' use, for now, he remains on Heparin to coumadin bridge. NOAcs may not be covered by insurance if off-label use. 8. 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
[2017-03-06 11:10] VITALS: BP 109/68; PULSE 85; TEMP 99
== END 2017-03-06 14:12 | disposition home or self-care (01) | DRG 816 ==
LOC: JER 11:04 → JERBED 18:13 → OBSVTOIN 03-01 01:13 → J4W 03-01 18:42
PROVIDERS: ADMIT Hospitalist; ATTEND Family Medicine
PROC: B246ZZ4 Ultrasonography of Right and Left Heart, Transesophageal (ICD-10-PCS; principal; 2017-03-05 13:30)
DX: D73.5 Infarction of spleen (principal); E66.9 Obesity, unspecified; R31.29 Other microscopic hematuria; Z68.39 Body mass index [BMI] 39.0-39.9, adult; N18.9 Chronic kidney disease, unspecified; M79.1 Myalgia; I34.0 Nonrheumatic mitral (valve) insufficiency; I13.10 Hypertensive heart and chronic kidney disease without heart failure, with stage 1 through stage 4 chronic kidney disease, or unspecified chronic kidney disease
CPT/HCPCS: 36415; 71046-TC; 74176-TC; 74177-TC; 80048; 80053; 81003; 81015; 82550; 83605; 83615; 83690; 84443; 84484; 84550; 85025; 85027; 85032; 85610; 85651; 85730; 86140; 87086; 90670; 90688; 93005; 93010; 93306-TC; 93312; 93325; 99285-25; G0378; J1644

== ENCOUNTER 2017-11-10 10:53 | Inpatient (IN) | payer OTHER ==
[2017-11-10 11:12] VITALS: BMI 39.5
--- NOTE | 2017-11-10 11:35 | PDOC ---
History of Present Illness - General Chief Complaint: Edema Stated Complaint: EDEMA Time Seen by Provider: 11/10/17 11:31 History Source: Patient - History of Present Illness Occurred: reports: yesterday Severity: Yes: severe Lower Extremity Pain Location: left: leg Past History - Past Medical History Allergies/Adverse Reactions: Allergies Allergy/AdvReac Type Severity Reaction Status Date / Time No Known Allergies Allergy Verified 02/28/17 11:09 Home Medications: Ambulatory Orders Carvedilol 6.25 mg PO BID 02/28/17 Acetaminophen [Tylenol .Regular Strength -] 650 mg PO Q6H PRN tablet 03/06/17 Acetaminophen [Tylenol .Regular Strength -] 650 mg PO Q4H PRN tablet 05/29/17 Diphenhydramine HCl [Benadryl Capsule -] 25 mg PO Q6H PRN capsule 05/29/17 Enoxaparin [Lovenox -] 120 mg SQ Q12H #60 disp.syrin 05/29/17 Polyvinyl Alcohol [Artificial Tears] 1 drop OU TID PRN #10 drops 05/29/17 Valsartan [Diovan] 160 mg PO DAILY #90 tablet 05/29/17 Asthma: No COPD: No HTN: Yes Hypercholesterolemia: Yes Other medical history: FACTOR IV LEIDEN - Suicide/Smoking/Psychosocial Hx Smoking Status: No Smoking History: Never smoked Have you smoked in the past 12 months: No Number of Cigarettes Smoked Daily: 0 Hx Alcohol Use: No Drug/Substance Use Hx: No Substance Use Type: None Review of Systems - Review of Systems Constitutional: No: Chills, Fever Respiratory: No: Shortness of Breath Cardiac (ROS): No: Chest Pain, Lightheadedness, Palpitations *Physical Exam - Vital Signs Last Vital Signs Temp Pulse Resp BP Pulse Ox 98.6 F 64 16 163/92 96 11/10/17 11:08 11/10/17 11:08 11/10/17 11:08 11/10/17 11:08 11/10/17 11:08 - Physical Exam General Appearance: Yes: Appropriately Dressed. No: Apparent Distress HEENT: positive: Normal Voice Neck: positive: Supple Respiratory/Chest: positive: Lungs Clear, Normal Breath Sounds. negative: Respiratory Distress Cardiovascular: positive: Regular Rate, S1, S2 Extremity: positive: Swelling, Other (diffuse swelling /ttp to LLE, there is a ~ 6x4 cmarea of faint erythema w/ an underlying ~1cm area of induration, nonfluctuant to medial LLE) Integumentary: positive: Dry, Warm Neurologic: positive: Fully Oriented, Alert, Normal Mood/Affect ED Treatment Course - LABORATORY CBC & Chemistry Diagram: 11/10/17 11:35 11/10/17 11:35 - RADIOLOGY Radiology Studies Ordered: Category Date Time Status DUPLEX VASCUL US-1 LEG [US] Stat Ultrasound 11/10/17 11:32 Ordered Medical Decision Making - Medical Decision Making 11/10/17 11:34 47-year-old male, history of HTN. HLD, HCM, factor V leiden, splenic infarct , was on coumadin up until 05/27 when patient was admitted for omental infarction, was placed on lovenox but since taken off and now on babay aspirin, f/u with service unit operator [employer] in [place], here with left lower extremity pain and swelling since yesterday. Denies any trauma. No chest pain, shortness of breath or palpitations see exam R/o DVT, possibly infection -US -labs 11/10/17 14:24 US read as no evidence of deep DVT, there is however evidence of a superficial vein thrombosis to distal left leg. Labs within normal limits. Pt reassessed with Dr. Frias who recommends antibiotics at this time for possible superficial thrombophlebitis based on exam and ultrasound findings. Will discuss disposition with patient's service unit operator [employer] [facility], Dr. Goff 11/10/17 15:31 Case d/w Dr Goff who states she was not aware that patient was discontinued off his lovenox by his service unit operator [facility]. Recommends patient be given a dose of lovenox in ED and admit at this time 11/10/17 17:20 11/10/17 18:27 At this time, pt is admitted to Dr Gruber who has not yet called me back to discuss case. I contacted hospitalist and made them aware *DC/Admit/Observation/Transfer Diagnosis at time of Disposition: Thrombophlebitis - Discharge Dispostion Condition at time of disposition: Fair Decision to Admit order: Yes - Referrals - Patient Instructions - Post Discharge Activity
[2017-11-10 11:57] LABS: EOS % 2.3 % (0-4.5); HEMATOCRIT 41.1 % (35.4-49); HEMOGLOBIN 13.8 GM/dL (11.7-16.9); LYMPH % 23.5 % (8-40); MCHC 33.6 g/dl (32.0-35.9); MEAN CELL VOLUME 89.2 fl (80-96); MEAN PLT VOLUME 8.4 fl (7.5-11.1); MONO % 6.3 % (3.8-10.2); NEUT % 66.9 % (42.8-82.8); PLATELET COUNT 267 K/MM3 (134-434); RBC 4.61 M/mm3 (4.00-5.60); RDW 14.6 % (11.9-15.9); WHITE BLOOD COUNT 7.7 K/mm3 (4.0-10.0)
[2017-11-10 12:07] LABS: INR 0.99 (0.83-1.09); PROTHROMBIN TIME (PATIENT) 11.7 SEC (9.7-13.0)
[2017-11-10 12:33] LABS: ALBUMIN 3.5 g/dl (3.4-5.0); ALK PHOS 79 U/L (45-117); ANION GAP 1 MMOL/L (8-16); BILIRUBIN,TOTAL 0.8 mg/dL (0.2-1); BLOOD UREA NITROGEN 13 mg/dL (7-18); CALCIUM 8.8 mg/dL (8.5-10.1); CHLORIDE 110 mmol/L (98-107); CO2 26 mmol/L (21-32); CREATININE 1.1 mg/dL (0.55-1.3); GLUCOSE,RANDOM 94 mg/dL (74-106); POTASSIUM 4.2 mmol/L (3.5-5.1); SGOT/AST 14 U/L (15-37); SGPT/ALT 36 U/L (13-61); SODIUM 137 mmol/L (136-145); TOT PROT 7.1 g/dl (6.4-8.2)
[2017-11-10] MEDS ORDERED: ACETAMINOPHEN 1000 MG/100 ML VIAL (NON FORMULARY) IVPB ONE (13:27)
[2017-11-10] MEDS ORDERED: CLINDAMYCIN 600MG PREMIX IVPB 600 MG/50 ML BAG IVPB ONE (14:41)
[2017-11-10] MEDS ORDERED: CLINDAMYCIN PHOSPHATE 600 MG/4 ML VIAL ONE (14:46)
[2017-11-10] MEDS ORDERED: ENOXAPARIN NA (PORCINE) 120 MG/0.8 ML DISP.SYRIN SQ SCH (16:15)
[2017-11-10] MEDS ORDERED: ACETAMINOPHEN 325 MG TABLET (FP) PO PRN (16:56)
[2017-11-10] MEDS ORDERED: ENOXAPARIN NA (PORCINE) 120 MG/0.8 ML DISP.SYRIN SQ ONE ×2 (17:00→21:45)
--- NOTE | 2017-11-10 20:03 | HP ---
Admitting History and Physical - Primary Care Physician PCP: Latanya Gruber - Admission Chief Complaint: Left Lower Extremity Swelling History of Present Illness: This is a 47 y/o man with a significant medical history of Hypertension, Hyperlipidemia, Factor V Leiden, Splenic Infarct (02/26) was on coumadin up until 05/27 when patient was admitted for omental infarction, was placed on Lovenox but since taken off and now on low dose aspirin,(f/u with jailkeeper in [place]). Who presents to the ED with LLE pain, swelling and redness x 1 day. Patient reports having some pruritus- which he attributes to the tightness of the skin. Patient denies SOB, CP, palpitations, parasthesias. Patient denies fever, chills, cough, AP, N/V/D, constipation, dysuira. Patient denies no recent trips or sick contact exposure. Category Specialist: Dr. 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 History of Recent Travel: No Home Medications - Allergies Allergies/Adverse Reactions: Allergies Allergy/AdvReac Type Severity Reaction Status Date / Time No Known Allergies Allergy Verified 02/28/17 11:09 - Home Medications Home Medications: Ambulatory Orders Carvedilol 25 mg PO BID 02/28/17 Amlodipine Besylate 10 mg PO HS 11/10/17 Clonidine HCl 0.4 mg PO AM 11/10/17 Clonidine HCl [Clonidine HCl ER] 0.5 mg PO HS 11/10/17 Doxazosin Mesylate [Cardura] 4 mg PO HS 11/10/17 Hydralazine HCl 25 mg PO HS 11/10/17 Losartan Potassium 100 mg PO HS 11/10/17 Family Disease History - Family Disease History Family Disease History: CA: Mother (malignant colon polyp, Factor V Leiden), Other: Father (unknown), Mother Review of Systems - Review of Systems Constitutional: reports: No Symptoms Eyes: reports: No Symptoms HENT: reports: No Symptoms Neck: reports: No Symptoms Cardiovascular: reports: Edema Respiratory: reports: No Symptoms Gastrointestinal: reports: No Symptoms Genitourinary: reports: No Symptoms Breasts: reports: No Symptoms Reported Musculoskeletal: reports: Extremity Pain, Joint Swelling Integumentary: reports: Erythema Neurological: reports: No Symptoms Endocrine: reports: No Symptoms Hematology/Lymphatic: reports: No Symptoms Psychiatric: reports: No Symptoms Pain Intensity: 5 Physical Examination Vital Signs: Vital Signs Temperature 98.6 F 11/10/17 17:44 Pulse Rate 70 11/10/17 17:44 Respiratory Rate 16 11/10/17 17:44 Blood Pressure 171/93 H 11/10/17 17:44 O2 Sat by Pulse Oximetry (%) 99 11/10/17 17:44 Constitutional: Yes: Well Nourished, No Distress, Calm, Obese Eyes: Yes: WNL, Conjunctiva Clear, EOM Intact, PERRL HENT: Yes: WNL, Atraumatic, Normocephalic Neck: Yes: WNL, Supple, Trachea Midline Cardiovascular: Yes: WNL, Regular Rate and Rhythm, S1, S2 Respiratory: Yes: WNL, Regular, CTA Bilaterally Gastrointestinal: Yes: WNL, Normal Bowel Sounds, Soft, Abdomen, Obese Renal/: Yes: WNL Breast(s): Yes: WNL Musculoskeletal: Yes: Back Pain (TTP) Extremities: Yes: Erythema (Anterior LLE), Other (no fluctuant) Edema: Yes Edema: LLE: 2+, RLE: 1+ Peripheral Pulses WNL: Yes Peripheral Pulses: Left Doralis Pedis: 2+, Right Dorsalis Pedis: 2+ Integumentary: Yes: Erythema (LLE) Neurological: Yes: WNL, Alert, Oriented, Cran Nerves II-XII Intact ...Motor Strength: WNL Psychiatric: Yes: WNL, Alert, Oriented Labs: CBC, BMP 11/10/17 11:35 11/10/17 11:35 Laboratory Results - last 24 hr 11/10/17 11/10/17 11/10/17 11:35 11:35 11:35 WBC 7.7 RBC 4.61 Hgb 13.8 Hct 41.1 D MCV 89.2 MCH 30.0 MCHC 33.6 RDW 14.6 Plt Count 267 D MPV 8.4 Absolute Neuts (auto) 5.2 Neutrophils % 66.9 Lymphocytes % 23.5 Monocytes % 6.3 Eosinophils % 2.3 Basophils % 1.0 Nucleated RBC % 0 PT with INR 11.70 INR 0.99 Sodium 137 Potassium 4.2 Chloride 110 H Carbon Dioxide 26 Anion Gap 1 L BUN 13 Creatinine 1.1 Creat Clearance w eGFR > 60 Random Glucose 94 Calcium 8.8 Total Bilirubin 0.8 AST 14 L ALT 36 Alkaline Phosphatase 79 Total Protein 7.1 Albumin 3.5 Intake & Output 11/08/17 11/09/17 11/10/17 11/11/17 23:59 23:59 23:59 23:59 Intake Total 100 Balance 100 Weight 117.934 kg Current Medications Generic Name Dose Route Start Last Admin Trade Name Freq PRN Reason Stop Dose Admin Acetaminophen 650 mg 11/10/17 16:56 Tylenol - PO Q4H PRN PAIN 4-6 Amlodipine Besylate 10 mg 11/11/17 22:00 Norvasc - PO HS LUI Carvedilol 25 mg 11/10/17 23:45 11/11/17 00:53 Coreg - PO Not Given BID LUI Clonidine 0.4 mg 11/11/17 10:00 Catapres - PO DAILY LUI Doxazosin Mesylate 4 mg 11/10/17 23:00 11/11/17 00:52 Cardura - PO Not Given HS LUI Enoxaparin Sodium 120 mg 11/11/17 10:00 Lovenox - SQ BID LUI Hydralazine HCl 25 mg 11/10/17 23:00 11/11/17 00:52 Apresoline - PO Not Given HS LUI Losartan Potassium 100 mg 11/10/17 23:00 11/11/17 00:52 Cozaar - PO Not Given HS LUI Melatonin 5 mg 11/10/17 22:44 11/11/17 00:56 Melatonin PO 5 mg HS PRN Administration INSOMNIA Non-Formulary Medication 0.5 mg 11/10/17 22:00 Clonidine Hcl [Clonidine Hcl Er] PO HS LUI Tizanidine HCl 2 mg 11/10/17 23:54 11/11/17 00:53 Tizanidine Hcl PO 2 mg Q8H PRN Administration MUSCLE SPASMS Imaging - Results Chest X-ray: Image Reviewed Ultrasound: Report Reviewed, Image Reviewed Problem List - Problems (1) Thrombophlebitis Assessment/Plan: - Likely secondary to Factor V Leiden - Duplex of lLE- no evidence of DVT. +noncompression superficial vein distal left leg - Lovenox given tonight, will continue - Appreciate Hematology consult - Neurovascular checks - Consider ID consult Code(s): I80.9 - PHLEBITIS AND THROMBOPHLEBITIS OF UNSPECIFIED SITE (2) Factor V Leiden Code(s): D68.51 - ACTIVATED PROTEIN C RESISTANCE (3) Hypertensive cardiomyopathy Assessment/Plan: - Continue home meds Code(s): I11.9 - HYPERTENSIVE HEART DISEASE WITHOUT HEART FAILURE; I43 - CARDIOMYOPATHY IN DISEASES CLASSIFIED ELSEWHERE Qualifiers: Heart failure presence: without heart failure Qualified Code(s): I11.9 - Hypertensive heart disease without heart failure; I43 - Cardiomyopathy in diseases classified elsewhere; I43 - Cardiomyopathy in diseases classified elsewhere; I43 - Cardiomyopathy in diseases classified elsewhere; I43 - Cardiomyopathy in diseases classified elsewhere (4) HTN (hypertension) Assessment/Plan: - controlled - Monitor BP - Continue home meds with parameters - Monitor renal function Code(s): I10 - ESSENTIAL (PRIMARY) HYPERTENSION Qualifiers: Hypertension type: essential hypertension Qualified Code(s): I10 - Essential (primary) hypertension (5) DVT prophylaxis Assessment/Plan: - OOB - Lovenox SQ Code(s): SPT6269 - Assessment/Plan 47 y/o man with a PMHx of: HTN, HLD, HCM, Factor V Leiden, Splenic Infarct (02/26 ). Admitted for Thrombophlebitis for further evaluation of their emergent condition. Plan: FEN PO Fluids as tolerated Replete lytes prn Low Na Diet Code Status: Full Code Dispo: Requires Inpatient Care Visit type - Emergency Visit Emergency Visit: Yes ED Registration Date: 11/10/17 Care time: The patient presented to the Emergency Department on the above date and was hospitalized for further evaluation of their emergent condition. - New Patient This patient is new to me today: Yes Date on this admission: 11/10/17 - Critical Care Critical Care patient: No
[2017-11-10] MEDS ORDERED: CLONIDINE HCL 0.5 MG PO SCH (22:00)
[2017-11-10] MEDS ORDERED: MELATONIN 5 MG TABLETS PO PRN (22:44)
[2017-11-10] MEDS ORDERED: DOXAZOSIN MESYLATE 4 MG TABLET PO SCH (23:00)
[2017-11-10] MEDS ORDERED: hydrALAZINE HCL 25 MG TABLET (FP) PO SCH (23:00)
[2017-11-10] MEDS ORDERED: LOSARTAN POTASSIUM 50 MG TABLET (FP) PO SCH (23:00)
[2017-11-10] MEDS ORDERED: TIZANIDINE HCL 2 MG TABLET PO PRN (23:54)
[2017-11-11] MEDS ORDERED: cloNIDine HCL 0.1 MG TABLET PO ONE (00:30)
[2017-11-11] MEDS: CARVEDILOL 25 MG TABLET (FP) PO SCH ×2 (00:53→11:32)
[2017-11-11 07:59] LABS: EOS % 4.2 % (0-4.5); HEMATOCRIT 38.2 % (35.4-49); HEMOGLOBIN 12.6 GM/dL (11.7-16.9); LYMPH % 34.6 % (8-40); MCH 29.5 pg (25.7-33.7); MCHC 32.9 g/dl (32.0-35.9); MEAN CELL VOLUME 89.7 fl (80-96); MEAN PLT VOLUME 9.2 fl (7.5-11.1); MONO % 6.2 % (3.8-10.2); PLATELET COUNT 147 K/MM3 (134-434); RBC 4.26 M/mm3 (4.00-5.60); WHITE BLOOD COUNT 6.6 K/mm3 (4.0-10.0)
[2017-11-11 08:31] LABS: ANION GAP 8 MMOL/L (8-16); BLOOD UREA NITROGEN 14 mg/dL (7-18); CALCIUM 8.5 mg/dL (8.5-10.1); CHLORIDE 107 mmol/L (98-107); CO2 24 mmol/L (21-32); CREATININE 1.1 mg/dL (0.55-1.3); GLUCOSE,RANDOM 87 mg/dL (74-106); SODIUM 140 mmol/L (136-145)
--- NOTE | 2017-11-11 08:40 | PN ---
Progress Note, Physician History of Present Illness: 47 y/o man with a PMHx of: HTN, HLD, HCM, Factor V Leiden, Splenic Infarct (02/26 ). Admitted for Thrombophlebitis for further evaluation of their emergent condition. - Current Medication List Current Medications: Active Medications Acetaminophen (Tylenol -) 650 mg PO Q4H PRN PRN Reason: PAIN 4-6 Amlodipine Besylate (Norvasc -) 10 mg PO HS [facility] Carvedilol (Coreg -) 25 mg PO BID [facility] Last Admin: 11/11/17 00:53 Dose: Not Given Clonidine (Catapres -) 0.4 mg PO DAILY LUI Doxazosin Mesylate (Cardura -) 4 mg PO HS [facility] Last Admin: 11/11/17 00:52 Dose: Not Given Enoxaparin Sodium (Lovenox -) 120 mg SQ BID [facility] Hydralazine HCl (Apresoline -) 25 mg PO HS [facility] Last Admin: 11/11/17 00:52 Dose: Not Given Losartan Potassium (Cozaar -) 100 mg PO HS [facility] Last Admin: 11/11/17 00:52 Dose: Not Given Melatonin (Melatonin) 5 mg PO HS PRN PRN Reason: INSOMNIA Last Admin: 11/11/17 00:56 Dose: 5 mg Non-Formulary Medication (Clonidine Hcl [Clonidine Hcl Er]) 0.5 mg PO HS [facility] Tizanidine HCl (Tizanidine Hcl) 2 mg PO Q8H PRN PRN Reason: MUSCLE SPASMS Last Admin: 11/11/17 00:53 Dose: 2 mg - Objective Vital Signs: Vital Signs Temperature 98.0 F 11/11/17 06:00 Pulse Rate 57 L 11/11/17 06:00 Respiratory Rate 18 11/11/17 06:00 Blood Pressure 145/92 11/11/17 06:00 O2 Sat by Pulse Oximetry (%) 99 11/10/17 21:00 Cardiovascular: Yes: Regular Rate and Rhythm Respiratory: Yes: Regular, CTA Bilaterally Gastrointestinal: Yes: Normal Bowel Sounds, Soft Extremities: Yes: Erythema, Other (tenderness over the left lower leg) Edema: Yes Labs: CBC, BMP 11/11/17 06:30 11/11/17 06:30 INR, PTT INR 0.99 (0.83-1.09) 10/02/18 11:35 Problem List - Problems (1) Thrombophlebitis Assessment/Plan: - Likely secondary to Factor V Leiden - Duplex of LE- no evidence of DVT. +noncompression superficial vein distal left leg - Lovenox given , will continue - Appreciate Hematology consult - Neurovascular checks - ID consult Code(s): I80.9 - PHLEBITIS AND THROMBOPHLEBITIS OF UNSPECIFIED SITE (2) Factor V Leiden Code(s): D68.51 - ACTIVATED PROTEIN C RESISTANCE (3) HTN (hypertension) Assessment/Plan: - controlled - Monitor BP - Continue home meds with parameters - Monitor renal function Code(s): I10 - ESSENTIAL (PRIMARY) HYPERTENSION Qualifiers: Hypertension type: essential hypertension Qualified Code(s): I10 - Essential (primary) hypertension (4) Splenic infarction Code(s): D73.5 - INFARCTION OF SPLEEN
[2017-11-11] MEDS ORDERED: cloNIDine HCL 0.1 MG TABLET PO SCH (10:00)
[2017-11-11] MEDS ORDERED: ENOXAPARIN NA (PORCINE) 120 MG/0.8 ML DISP.SYRIN SQ SCH (10:00)
[2017-11-11] MEDS ORDERED: PT OWN MED DRAWER 7, Y5N ONE (11:28)
--- NOTE | 2017-11-11 11:59 | CONSULT ---
Consultation: REQUESTING PROVIDER: CONSULT REQUEST: We have been asked to medically evaluate this patient for superficial phlebitis. 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 Who presents to the ED with LLE pain, swelling and redness x 1 day. Patient reports having some pruritus- which he attributes to the tightness of the skin. Patient denies SOB, CP, palpitations, parasthesias. Patient denies fever, chills, cough , AP, N/V/D, constipation, dysuira. Patient denies no recent trips or sick contact exposure. Seen in May and thrombophilia w/u reveled thrombophilia w/u revealed factor V Leiden heterozygous state, negative for APLs/ATII/Prothrombin gene [id number] mutation/MPD. Manager Telecom: Dr. 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 History of Recent Travel: No REVIEW OF SYSTEMS: CONSTITUTIONAL: Absent: fever, chills, diaphoresis, generalized weakness, malaise, loss of appetite, weight change HEENT: Absent: rhinorrhea, nasal congestion, throat pain, throat swelling, difficulty swallowing, mouth swelling, ear pain, eye pain, visual changes CARDIOVASCULAR: Absent: chest pain, syncope, palpitations, irregular heart rate, lightheadedness , peripheral edema RESPIRATORY: Absent: cough, shortness of breath, dyspnea with exertion, orthopnea, wheezing, stridor, hemoptysis GASTROINTESTINAL: Absent: abdominal pain, abdominal distension, nausea, vomiting, diarrhea, constipation, melena, hematochezia GENITOURINARY: Absent: dysuria, frequency, urgency, hesitancy, hematuria, flank pain, genital pain MUSCULOSKELETAL: left lower leg pain Absent: myalgia, arthralgia, joint swelling, back pain, neck pain SKIN: Absent: rash, itching, pallor HEMATOLOGIC/IMMUNOLOGIC: Absent: easy bleeding, easy bruising, lymphadenopathy, frequent infections ENDOCRINE: Absent: unexplained weight gain, unexplained weight loss, heat intolerance, cold intolerance NEUROLOGIC: Absent: headache, focal weakness or paresthesias, dizziness, unsteady gait, seizure, mental status changes, bladder or bowel incontinence PSYCHIATRIC: Absent: anxiety, depression, suicidal or homicidal ideation, hallucinations. PHYSICAL EXAMINATION Vital Signs - 24 hr 11/10/17 11/10/17 11/10/17 14:26 17:44 19:30 Temperature 98.1 F 98.6 F 98.2 F Pulse Rate 70 Pulse Rate [ 69 70 Apical] Respiratory 20 16 18 Rate Blood Pressure 156/95 Blood Pressure 150/86 171/93 H [Right Arm] O2 Sat by Pulse 100 99 Oximetry (%) 11/10/17 11/10/17 11/10/17 19:32 20:00 21:00 Temperature 98.2 F Pulse Rate 70 Pulse Rate [ Apical] Respiratory 18 Rate Blood Pressure 156/95 Blood Pressure [Right Arm] O2 Sat by Pulse 99 99 Oximetry (%) 11/10/17 11/11/17 11/11/17 22:22 01:59 06:00 Temperature 98.5 F 98.4 F 98.0 F Pulse Rate 70 62 57 L Pulse Rate [ Apical] Respiratory 18 18 18 Rate Blood Pressure 158/89 156/88 145/92 Blood Pressure [Right Arm] O2 Sat by Pulse Oximetry (%) 11/11/17 11:40 Temperature Pulse Rate 64 Pulse Rate [ Apical] Respiratory Rate Blood Pressure 146/93 Blood Pressure [Right Arm] O2 Sat by Pulse Oximetry (%) GENERAL: AAOx3, NAD HEAD: NCAT EYES:PERRLA,EOMI sclera anicteric, conjunctiva clear. No lid lag. EARS, NOSE, THROAT: Moist mucous membranes. NECK: Supple without lymphadenopathy, JVD, or masses. LUNGS: CTAB. No wheezes, and no crackles. No accessory muscle use. HEART:RRR, normal S1 and S2 without murmur, rub or gallop. ABDOMEN: Soft, obese.NTND, NABS, no guarding, no rebound, no masses. No organomegally. MUSCULOSKELETAL: decreased ROM of LLE 2/2 to pain. UPPER EXTREMITIES: 2+ pulses, warm, well-perfused. No cyanosis. No clubbing. Cap refill <2 seconds. No peripheral edema. LOWER EXTREMITIES: 2+ pulses, warm, well-perfused. LLE with tenderness to palpation, erythema and warmth. NEUROLOGICAL: Cranial nerves II-XII intact. Normal speech. gait not observed. PSYCHIATRIC: Cooperative. Good eye contact. Appropriate mood and affect. Laboratory Results - last 24 hr 11/10/17 11/10/17 11/10/17 11:35 11:35 11:35 WBC 7.7 RBC 4.61 Hgb 13.8 Hct 41.1 D MCV 89.2 MCH 30.0 MCHC 33.6 RDW 14.6 Plt Count 267 D MPV 8.4 Absolute Neuts (auto) 5.2 Neutrophils % 66.9 Lymphocytes % 23.5 Monocytes % 6.3 Eosinophils % 2.3 Basophils % 1.0 Nucleated RBC % 0 PT with INR 11.70 INR 0.99 Sodium 137 Potassium 4.2 Chloride 110 H Carbon Dioxide 26 Anion Gap 1 L BUN 13 Creatinine 1.1 Creat Clearance w eGFR > 60 Random Glucose 94 Calcium 8.8 Total Bilirubin 0.8 AST 14 L ALT 36 Alkaline Phosphatase 79 Total Protein 7.1 Albumin 3.5 11/11/17 11/11/17 06:30 06:30 WBC 6.6 RBC 4.26 Hgb 12.6 Hct 38.2 MCV 89.7 MCH 29.5 MCHC 32.9 RDW 15.0 Plt Count 147 D MPV 9.2 Absolute Neuts (auto) 3.6 Neutrophils % 54.0 Lymphocytes % 34.6 D Monocytes % 6.2 Eosinophils % 4.2 D Basophils % 1.0 Nucleated RBC % 0 PT with INR INR Sodium 140 Potassium 4.0 Chloride 107 Carbon Dioxide 24 Anion Gap 8 BUN 14 Creatinine 1.1 Creat Clearance w eGFR > 60 Random Glucose 87 Calcium 8.5 Total Bilirubin AST ALT Alkaline Phosphatase Total Protein Albumin Active Medications Generic Name Dose Route Start Last Admin Trade Name Freq PRN Reason Stop Dose Admin Acetaminophen 650 mg 11/10/17 16:56 Tylenol - PO Q4H PRN PAIN 4-6 Amlodipine Besylate 10 mg 11/11/17 22:00 Norvasc - PO HS LUI Carvedilol 25 mg 11/10/17 23:45 11/11/17 11:32 Coreg - PO 25 mg BID LUI Administration Clonidine 0.4 mg 11/11/17 10:00 11/11/17 11:33 Catapres - PO 0.4 mg DAILY LUI Administration Doxazosin Mesylate 4 mg 11/10/17 23:00 11/11/17 00:52 Cardura - PO Not Given HS LUI Enoxaparin Sodium 120 mg 11/11/17 10:00 11/11/17 11:33 Lovenox - SQ 120 mg BID LUI Administration Hydralazine HCl 25 mg 11/10/17 23:00 11/11/17 00:52 Apresoline - PO Not Given HS LUI Losartan Potassium 100 mg 11/10/17 23:00 11/11/17 00:52 Cozaar - PO Not Given HS LUI Melatonin 5 mg 11/10/17 22:44 11/11/17 00:56 Melatonin PO 5 mg HS PRN Administration INSOMNIA Non-Formulary Medication 0.5 mg 11/10/17 22:00 Clonidine Hcl [Clonidine Hcl Er] PO HS LUI Tizanidine HCl 2 mg 11/10/17 23:54 11/11/17 00:53 Tizanidine Hcl PO 2 mg Q8H PRN Administration MUSCLE SPASMS ASSESSMENT/PLAN: 47 y/o man with a significant medical history of Hypertension, Hyperlipidemia, Factor V Leiden admitted for superficial pheb Dispo: We will continue to follow the patient. Thank you for this consultative opportunity. Problem List - Problems (1) Factor V Leiden Assessment/Plan: known history of Thrombophilia. factor V Leiden heterozygous state * Followed @ [facility] and Dr. Goff * Will need AC indef. * Lovenox because has failed coumadin in past and given his BMI unsure efficacy of NOACs . * Continue Lovenox 120mg SQ BID until able to see Dr. Goff in office. * Follow with [facility] for future management of AC. (2) HTN (hypertension) Assessment/Plan: Difficult to control HTN on multi-drug regimen. * Amlodipine Besylate (Norvasc -) 10 mg PO HS * Carvedilol (Coreg -) 25 mg PO BID * clonidine (Catapres -) 0.4 mg PO DAILY * Doxazosin Mesylate (Cardura -) 4 mg PO HS * Hydralazine HCl (Apresoline -) 25 mg PO HS * Losartan Potassium (Cozaar -) 100 mg PO HS * Clonidine Hcl [Clonidine Hcl Er]) 0.5 mg PO HS Visit type - Emergency Visit Emergency Visit: Yes ED Registration Date: 11/10/17 Care time: The patient presented to the Emergency Department on the above date and was hospitalized for further evaluation of their emergent condition. - New Patient This patient is new to me today: Yes Date on this admission: 11/11/17 - Critical Care Critical Care patient: No
[2017-11-11 15:02] VITALS: BP 101/62; PULSE 67; TEMP 98.5
--- NOTE | 2017-11-11 16:30 | PN ---
Teaching Attending Note Name of Resident: Brigido Morley ATTENDING PHYSICIAN STATEMENT I saw and evaluated the patient. I reviewed the resident's note and discussed the case with the resident. I agree with the resident's findings and plan as documented. SUBJECTIVE:Patient seen and examined Agree with evaluation To be discharged on Lovenox BID until office follow up. Dosage max for NOAC's is 120/m2 which is 264 lb max and patient is 260 so theoretically can be given eliquis. Borderline weight for NOAC) As patient has a superficial thrombophlebitis- will be discharged on lovenox . Patient is a coumadin failure with splenic and omental infarcts while still on coumadin. OBJECTIVE: ASSESSMENT AND PLAN:
[2017-11-11] MEDS ORDERED: amLODIPine BESYLATE 10 MG TABLET (FP) PO SCH (22:00)
== END 2017-11-11 18:35 | disposition home or self-care (01) | DRG 300 ==
LOC: JER 10:53 → JERBED 15:32 → J5S 18:45
PROVIDERS: ADMIT Family Medicine; ATTEND Family Medicine
DX: I80.02 Phlebitis and thrombophlebitis of superficial vessels of left lower extremity (principal); D68.51 Activated protein C resistance; I42.8 Other cardiomyopathies; I11.9 Hypertensive heart disease without heart failure; D73.5 Infarction of spleen; Z79.01 Long term (current) use of anticoagulants
CPT/HCPCS: 36415; 80048; 80053; 85025; 85610; 93971-TC; 99283-25; J0735

== ENCOUNTER 2021-12-10 15:15 | Emergency (ER) | payer OTHER ==
[2021-12-10 15:41] VITALS: BP 150/93; PULSE 78; RESP 16; TEMP 98.1; BMI 41.0
[2021-12-10] MEDS ORDERED: OXYMETAZOLINE 0.05% NASAL SOLUTION 15 ML BOTTLE NS ONE (16:52)
[2021-12-10 18:07] LABS: BASO % 0.6 % (0-2.0); HEMATOCRIT 40.2 % (35.4-49); HEMOGLOBIN 13.1 GM/dL (11.7-16.9); LYMPH % 24.8 % (8-40); MCH 29.4 pg (25.7-33.7); MCHC 32.7 g/dl (32.0-35.9); MEAN CELL VOLUME 89.9 fl (80-96); MEAN PLT VOLUME 9.6 fl (7.5-11.1); MONO % 7.4 % (3.8-10.2); NEUT % 64.2 % (42.8-82.8); PLATELET COUNT 173 10^3/uL (134-434); RBC 4.48 M/mm3 (4.00-5.60); RDW 14.3 % (11.9-15.9); WHITE BLOOD COUNT 9.2 K/mm3 (4.0-10.0)
[2021-12-10 18:24] LABS: ALBUMIN 3.4 g/dl (3.4-5.0); BLOOD UREA NITROGEN 13.3 mg/dL (7-18)
[2021-12-10 18:27] LABS: CREATININE 1.2 mg/dL (0.55-1.3)
[2021-12-10 18:28] LABS: BILIRUBIN,TOTAL 0.4 mg/dL (0.2-1); TOT PROT 6.8 g/dl (6.4-8.2)
== END 2021-12-10 18:55 | disposition left against medical advice (07) ==
LOC: JER 15:15
DX: R04.0 Epistaxis (principal)
CPT/HCPCS: 36415; 80053; 85025; 99283-25

== ENCOUNTER 2023-08-20 17:01 | Emergency (ER) | payer OTHER ==
[2023-08-20 17:21] VITALS: BP 101/54; PULSE 76; RESP 18; TEMP 98.5; BMI 41.2
[2023-08-20] MEDS: KETOROLAC TROMETHAMINE 30 MG/1 ML VIAL IM ONE (19:13)
[2023-08-20] MEDS ORDERED: KETOROLAC TROMETHAMINE 30 MG/1 ML VIAL ONE (19:14)
== END 2023-08-20 19:14 | disposition home or self-care (01) ==
LOC: JER 17:01 → JERFT 17:01
PROC: 3E0233Z Introduction of Anti-inflammatory into Muscle, Percutaneous Approach (ICD-10-PCS; principal; 2023-08-20)
DX: M25.571 Pain in right ankle and joints of right foot (principal); M25.471 Effusion, right ankle
CPT/HCPCS: 73610-TC-RT-FY; 73630-TC-RT-FY; 99284-25